=== PATIENT | male | born 1935 | race Caucasian/White ===

== ENCOUNTER 2016-11-14 05:46 | Emergency (ER) | payer OTHER ==
--- NOTE | ~2016-11-14 | EKG ---
PATIENT: LEESA MCKEON UNIT #: [id number] Ventricular Rate: 71 BPM Atrial Rate: 74 BPM QRS Duration: 84 ms Q-T Interval: 416 ms QTC Calculation(Bezet): 452 ms Calculated R Ione: 94 degrees Calculated T Ione: 60 degrees Diagnosis Line: ?? Sinus rhythm Diagnosis Line: Rightward axis Diagnosis Line: Low voltage QRS Diagnosis Line: Abnormal ECG Diagnosis Line: When compared with ECG of 22-MAY-2014 11:20, Diagnosis Line: No significant change was found Diagnosis Line: Confirmed by SHERI ARMENTA MD ([id number]) on Diagnosis Line: 11/14/2016 11:15:40 AM INTERPRETING MD: JAVIER
[~2016-11-14 05:46] MED LIST: ACETAMINOPHEN PO; ALDACTONE25 MG PO; ASPIRIN81 M1 PO; ASPIRIN81 MG PO; ASPIRINEC PO; AUGMENTIN1 TAB.SR1 PO; BP PILL; CADUET 5 MG/201 TAB PO; GLUCOVANCE 2.5/1 TA1 PO; GLUCOVANCE 5/501 TA2 PO; HUMULIN 70/30 V10 ML SUBQ; HUMULIN 70100 UNIT/1; HUMULIN 70100 UNIT/1 SQ; IRON325 ( 651 PO; LANTUS100 U/ML; LANTUS100 U/ML SUBQ; LASIX PO; LEVAQUIN PO; LOSARTAN-HCTZ1 EACH PO; LOTREL 5-20 MG1 CAP PO; LOTREL 5/20 MG1 CAP PO; NAFCILLIN SO2 G/VIAL IV; VICODIN 5/500 T1 TAB PO; ZANTAC PO; ZANTAC150 M1 PO
[2016-11-14 06:50] LABS: BASOPHIL% 0.1 % (0-2.5); EOSINOPHIL# 0.2 X10e3 (0-0.7); EOSINOPHIL% 3.3 % (0.0-7.0); HEMATOCRIT 27.5 % (38.0-50.0); HEMOGLOBIN 9.2 gm/dL (13.0-16.0); LYMPHOCYTE# 1.6 X10e3 (1.0-3.5); LYMPHOCYTE% 24.9 % (17.0-45.0); MEAN CELL VOLUME 101.7 FL (83-96); MEAN CORPUSCULAR HEMOGLOBIN 33.9 PG (28-34); MEAN CORPUSCULAR HGB CONC 33.3 g/dL (30-36); MONOCYTE# 0.7 X10e3 (0-1.0); MONOCYTE% 10.2 % (3.0-12.0); NEUTROPHIL% 61.5 % (40-75); RED BLOOD COUNT 2.71 X10e (3.90-5.60); RED CELL DISTRIBUTION WIDTH 14.2 % (11.0-15.5); WHITE BLOOD COUNT 6.4 X10e3 (4.0-10.5)
[2016-11-14 06:56] LABS: ALBUMIN SERUM 3.6 g/dL (3.5-5.0); BILIRUBIN, DIRECT 0.3 mg/dL (0.0-0.2); BILIRUBIN,TOTAL 1.3 mg/dL (0.2-2.0); CALCIUM SERUM 8.5 mg/dL (8.4-10.2); GLOM FILT RATE Estimated 30.8 mL/min (>60); POTASSIUM 4.5 mmol/L (3.5-5.1); PROTEIN TOTAL SERUM 6.5 g/dL (6.0-8.3)
[2016-11-14 07:15] LABS: DIFF IND YES; PLATELET COUNT 94 X10e3 (140-420)
[2016-11-14 07:17] LABS: PLATELET ESTIMATE DECREASED (NORMAL)
[2016-11-14 07:18] LABS: ANISOCYTOSIS SL; RBC NORMAL YES
[2016-11-14] MEDS ORDERED: NOVOLIN N100 UNIT/1 SUBQ ×2 (07:21→07:22)
[2016-11-14] MEDS ORDERED: NOVOLIN R100 UNITS/ SUBQ ×4 (07:22→07:25)
[2016-11-14] MEDS ORDERED: LASIX20 MG PO (07:23)
[2016-11-14] MEDS ORDERED: VITAMIN D-32000 UNI2 PO (07:23)
[2016-11-14] MEDS ORDERED: CARAFATE1 GM PO (07:24)
[2016-11-14] MEDS ORDERED: PHENERGAN12.5 MG PO (07:24)
[2016-11-14 12:10] LABS: URINE SOURCE CLEAN CATCH
[2016-11-14 12:15] LABS: URINE APPEARANCE CLEAR; URINE BLOOD NEG (NEG); URINE COLOR DK YELLOW; URINE GLUCOSE NEG (NEG); URINE KETONE TRACE (NEG); URINE LEUKOCYTE ESTERASE NEG (NEG); URINE NITRATE NEG (NEG); URINE PROTEIN 1+ (NEG); URINE SPECIFIC GRAVITY 1.022 (1.003-1.035)
[2016-11-14 12:17] LABS: URINE BACTERIA AUWI NEG (NEGATIVE); URINE SQUAMOUS EPITHELIAL CELL OCC /[HPF]
[2016-11-14 12:18] LABS: URINE BILIRUBIN POS (NEG)
[2016-11-14 12:26] LABS: CULTURE INDICATED? NO; U HYALINE CASTS AUWI 0-2 /[LPF]
== END 2016-11-14 13:42 | disposition home or self-care (01) ==
LOC: CED 05:46
PROVIDERS: Emergency Medicine
DX: E10.649 Type 1 diabetes mellitus with hypoglycemia without coma (principal); N28.9 Disorder of kidney and ureter, unspecified; I10 Essential (primary) hypertension
CPT/HCPCS: 36415; 80048; 80076; 81003; 82947; 85025; 93005; 96360; 99284

== ENCOUNTER 2016-11-19 08:28 | Inpatient (IN) | payer OTHER ==
--- NOTE | ~2016-11-19 | US77 ---
[facility] A Service of [facility] RADIOLOGY TEXT RESULTS PATIENT: LEESA MCKEON LOCATION: [facility] 330- : 37 UNIT #: [id number] AGE: [address]: Nika Royal MD SEX: M ORDER DR: [id number] [facility] [address] [facility]. [place], [place] [address] [id number] I MR#: [id number] Acc #: [id number] NAME: LEESA MCKEON : 1935 SEX: M STUDY DATE/TIME: 11/19/2016 18:49 UNIT: [address] ROOM: [address] [place] [address] DESCRIPTION: US Kidney Bilateral Complete Attending Physician: Tonie Cronin M.D. Ordering Physician: Tonie Cronin M.D. Primary Care Physician: Luca Echavarria M.D. MEDICAL IMAGING REPORT This report is preliminary unless electronic signature is present EXAM Right renal ultrasound HISTORY Chronic kidney disease. Elevated creatinine. FINDINGS Ultrasound examination of both kidneys was requested. However, the left kidney is not visualized, and could be obscured by bowel gas. The right kidney appears moderately atrophic, and is also not optimally seen, but no right hydronephrosis is identified. Urinary bladder is normal. IMPRESSION 1. Moderate right renal atrophy. No right renal abnormality is identified but evaluation is limited by bowel gas partly obscuring the right kidney. 2. Nonvisualization of the left kidney due to bowel gas in the left abdomen. Consider either attempted repeat left renal ultrasound versus CT abdomen to evaluate the left kidney. Depending upon clinical concern. 3. Survey of the urinary bladder is normal. Dictated by... Charli Nguyen M.D. THIS IS AN ELECTRONICALLY VERIFIED REPORT Charli Nguyen M.D. at 11/27/2016 10:34 PM JV/dilip TD: 11/20/2016 03:44 JOB #: [id number] [facility] A Service [facility] RADIOLOGY TEXT RESULTS PATIENT: LEESA MCKEON LOCATION: [facility] 330-01 : 37 UNIT #: [id number] AGE: [address]: Nika Royal MD SEX: M ORDER DR: MEDICAL IMAGING REPORT Page 1 of 1 COPY
--- NOTE | ~2016-11-19 | HP ---
Unit #: [id number] #: [id number] Patient: LEESA MCKEON [id number] [facility]. [place], [place] [address] [id number] I MR#: [id number] NAME: LEESA MCKEON. ROOM: 60223 Age: 81 Sex: M Admission Date: 11/19/2016 : 1935 Attending Physician: Tonie Cronin M.D. Primary Care Physician: Luca Echavarria M.D. HISTORY AND PHYSICAL CHIEF COMPLAINT Shortness of breath. HISTORY OF PRESENT ILLNESS The patient is a 81-year-old male with past medical history of hypertension, CHF and diabetes who presented to the emergency department for evaluation of the above. The patient states that he has had at least a one-week history of increasing shortness of breath and nonproductive cough. He denies any fever. No chest pain. He has 3-pillow orthopnea that is not a new problem. He reports increasing lower extremity edema. He has gained an unknown amount of weight. He has dyspnea on exertion with minimal activity. He also reports paroxysmal nocturnal dyspnea. He has had decreased appetite and nausea but no vomiting or diarrhea. The patient states that he was started on Lasix and spironolactone in September of 2016 around [place]. Two weeks later it was discontinued. He saw Dr. Queen who recommended that he go back on the Lasix 20 mg b.i.d. He has been taking his medications as prescribed. In the emergency department chest x-ray was done and showed pulmonary edema. BNP was 511. He was given 40 mg of Lasix IV in the emergency department. He is being admitted to [facility] for evaluation and further treatment. PAST MEDICAL HISTORY 1. Admission to [facility] May 08 through May 14, 2011 for MRSA bacteremia and E-coli urinary tract infection. 2. Chronic kidney disease, followed by Dr. Pulliam. 3. Hypertension. 4. Diabetes. The patient sees Dr. Batista. 5. Congestive heart failure. The patient had an echocardiogram May 13, 2011 that showed an ejection fraction of 50% with mild septal hypokinesis, mild concentric left ventricular hypertrophy, mild mitral regurgitation. He does not routinely see a manager service desk. PAST SURGICAL HISTORY 1. Right knee surgery. 2. Left foot surgery. 3. Right wrist. SOCIAL HISTORY Unit #: [id number] #: [id number] Patient: LEESA MCKEON The patient lives with his . He does not smoke. He walks with a walker. CODE STATUS His code status is a full code. FAMILY HISTORY Notable for his paternal grandmother having diabetes. ALLERGIES Omeprazole. HOME MEDICATIONS 1. Novolin N 45 units in the morning, 35 units at bedtime. 2. Novolin R 20 units at lunch, 15 units at dinner. 3. Novolin R 25 units with breakfast. 4. Vitamin D3 - 2,000 units daily. 5. Lasix 20 mg b.i.d. 6. Phenergan 12.5 mg q.i.d. p.r.n. 7. Carafate 1 gram q.i.d. 8. Zestril 25 mg daily. REVIEW OF SYSTEMS A complete review of systems is negative except as indicated in the HPI. The patient was seen in the emergency department on November 14, 2016 for low blood sugar. He was discharged home. He has altered his insulin regimen since that time. Blood sugars have been between 70 and 100 since then. He also reports a fall on November 05, 2016. The patient states that he had a stress test and a cardiac catheterization more than 5 years ago at [facility]. PHYSICAL EXAMINATION VITAL SIGNS: Temperature is 98, pulse 66, respirations 20, blood pressure 141/53, oxygen saturation 98% on room air. GENERAL: The patient is a very pleasant male who is awake and alert, in no acute distress. HEENT: The head is atraumatic. Mucous membranes are moist. NECK: Supple. Trachea is midline. CARDIOVASCULAR: Regular rate and rhythm. RESPIRATORY: Lungs demonstrate decreased breath sounds at he bases. Breathing is mildly labored with conversation. ABDOMEN: Obese, soft, nontender with bowel sounds present in all 4 quadrants. EXTREMITIES: Extremities show 2 to 3+ pitting edema of the lower extremities. NEUROLOGIC: The patient is awake and alert. He follows commands. PSYCHIATRIC: Mood and affect are normal. The patient is cooperative. SKIN: Skin of examined areas is warm and dry. DIAGNOSTIC TESTS CARDIOVASCULAR: EKG shows low voltage and a rate of 65 beats per minute. IMAGING: Chest x-ray shows pulmonary edema. LABORATORY: Troponin is less than 0.05. INR is 1.3. Complete blood count notable for hemoglobin and hematocrit of 8.9 and 26.5 respectively. MCV is 102.5, RDW 14.5, platelets 92. Comprehensive metabolic panel is notable for chloride of 113, CO2 19, anion gap 7, glucose 114, BUN and creatinine Unit #: [id number] #: [id number] Patient: LEESA MCKEON 58 and 2.1 respectively. BNP is 511. ASSESSMENT 1. The patient is a 81-year-old male with CHF exacerbation. Ejection fraction was 50% on echocardiogram May 13, 2011. The patient received 40 mg of Lasix in the emergency department. 2. Acute on chronic kidney disease. The patient sees Dr. Pulliam. His creatinine was 1.3 on November 26, 2015. It was 2 on November 14 of this year, 2.1 today. He is on Lasix and Zestril, which could be contributing. 3. Hypertension. 4. Macrocytic anemia. The patient's hemoglobin was 13.1 May 22, 2014; 9.2 on November 14, 2016; it is 8.9 today. 5. Thrombocytopenia. The patient's platelets have been as low as 123 on May 22, 2014. Platelets are 92 today. 6. Diabetes. PLAN 1. Admit to intermediate level. 2. Two-gram sodium, 1,800 mL fluid restricted, heart healthy, consistent carb diet. 3. Two-D echo. 4. Strict I's and O's. 5. Daily weights. 6. TSH. 7. Serial cardiac enzymes. 8. Lasix 20 mg IV daily pending Dr. Arias's recommendations. 9. Consult Dr. Arias regarding congestive heart failure exacerbation. 10. Consult Dr. Pulliam regarding acute on chronic kidney disease. 11. Will hold lisinopril pending further workup. 12. CPK. 13. Check urinalysis with culture and sensitivity. 14. Iron studies, B12 and folate. 15. Hemoccult stool. 16. Get cardiac cath report from [facility]. 17. Repeat labs in the morning. 18. Additional workup and consultants based on above. Dictated by Karina Rodrigues/christie TD: 11/19/2016 14:48 JOB #: [id number] Unit #: [id number] #: [id number] Patient: LEESA MCKEON HISTORY AND PHYSICAL Page 1 of 1 X Tonie Cronin MD HISTORY AND PHYSICAL
--- NOTE | ~2016-11-19 | EKG ---
PATIENT: LEESA MCKEON UNIT #: [id number] Ventricular Rate: 65 BPM Atrial Rate: 65 BPM QRS Duration: 82 ms Q-T Interval: 418 ms QTC Calculation(Bezet): 434 ms Calculated R [place]: 105 degrees Calculated T [place]: 93 degrees Diagnosis Line: Atrial fibrillation Diagnosis Line: Rightward axis Diagnosis Line: Low voltage QRS Diagnosis Line: Abnormal ECG Diagnosis Line: When compared with ECG of 14-NOV-2016 08:45, Diagnosis Line: No significant change was found Diagnosis Line: Confirmed by LEONORA BHAT MD ([id number]) on Diagnosis Line: 11/20/2016 2:53:39 PM INTERPRETING MD: EVELINE
--- NOTE | ~2016-11-19 | DS ---
Unit #: [id number] #: [id number] Patient: LEESA MCKEON [id number] [address] [address] [id number] I MR#: [id number] NAME: LEESA MCKEON ROOM: 330 Age: 81 Sex: M Admission Date: 11/19/2016 : 1935 Discharge Date: 11/28/2016 Attending Physician: Nika Royal M.D. Primary Care Physician: Luca Echavarria M.D. DISCHARGE SUMMARY REASON FOR ADMISSION 1. Acute on chronic end diastolic heart failure. 2. Acute on chronic kidney disease. 3. Hypertension. 4. Diabetes. 5. Metabolic acidosis. HOSPITAL COURSE Please see Dr. Downey's initial transition/discharge summary for initial part of hospital stay. Patient was subsequently kept after renal services recommended Lasix 120 mg IV b.i.d. He was appropriately followed while here. He underwent routine laboratory studies. Cardiology service has continued to follow the patient as well. At this point in time, his creatinine currently stands at 2.2. At time of discharge, his hemoglobin is 9.8. He appears clinically stable for transition to rehab for ongoing care. FINAL DISCHARGE MEDICATIONS 1. K-Dur 20 mEq p.o. b.i.d. 2. Carafate 1 g p.o. q.a.c. 3. NovoLog low dose sliding scale with insulin, Accu-Cheks q.a.c. and nightly. 4. Humulin N 40 units subcutaneous q.a.m. 5. Humulin N 35 units subcutaneous nightly. 6. Lasix 40 mg p.o. b.i.d. 7. Tylenol 650 mg p.o. q.6 p.r.n. DISCHARGE CONDITION Stable. DISCHARGE DISPOSITION Rehab for ongoing care. Dictated by... Karina Panchal/juan Unit #: [id number] #: [id number] Patient: LEESA MCKEON TD: 11/28/2016 10:48 JOB #: [id number] DISCHARGE SUMMARY Page 1 of 1 X Nika Royal MD DISCHARGE SUMMARY
--- NOTE | ~2016-11-19 | CO ---
Unit #: [id number] #: [id number] Patient: LEESA MCKEON [id number] [address] [place], [place] [address] [id number] MR#: [id number] NAME: LEESA MCKEON ROOM: 330 Age: 81 Sex: M Admission Date: 11/19/2016 : 1935 Attending Physician: Saqib Downey M.D. Primary Care Physician: Luca Echavarria M.D. Consultation Date: 11/19/2016 CONSULTATION REPORT REASON FOR CONSULTATION Renal insufficiency. Thank you very much for asking me to see this patient again. HISTORY OF PRESENT ILLNESS Mr. Mckeon is a 81-year-old male with history of chronic kidney disease, stage 3, felt related to diabetes mellitus, followed by Dr. Rocael Pulliam in our office with a creatinine baseline of 1.49 in the last two checks in the end of 2015, who presented to the hospital with increasing shortness of breath. He says this has been going on for the last 6 to 8 weeks. His diuretics have been intermittently adjusted per primary as well as noted to have worsening anemia. He also went apparently to the emergency room in the last week with some nausea and was given Carafate and Phenergan. He denies any nonsteroidal use in home. He says mainly just some increased swelling and mild increased shortness of breath. He denies any chest pain, fevers, or chills. PAST MEDICAL HISTORY History of diabetes mellitus for many years with complications including retinopathy, neuropathy, and probably nephropathy; history of chronic kidney disease, stage 3; history of obesity; history of left lower extremity DVT 20 plus years ago; history of nephrolithiasis in 2000; history of obstructive sleep apnea, has refused treatment for this; and history of peptic ulcer disease in the past. SOCIAL HISTORY No smoking. . Retired. Occasional alcohol only. REVIEW OF SYSTEMS As mentioned in the HPI. No visual problems or sinus problems. No cough or hemoptysis. No neck pain or neck stiffness. No chest pain, chest heaviness, or palpitations. Some mild shortness of breath upon exertion and at rest. Increased abdominal swelling. No urinary symptoms; starting, stopping, or burning. Increased scrotal swelling. Increased lower extremity swelling. No recent seizures, strokes, or skin rashes. FAMILY HISTORY Noncontributory. MEDICATIONS At home include lisinopril daily, Aldactone 25 mg a day, Lasix 20 mg b.i.d., insulin, sodium bicarb twice a day, and vitamin D daily. Unit #: [id number] #: [id number] Patient: LEESA MCKEON PHYSICAL EXAMINATION GENERAL: He is alert and oriented. VITAL SIGNS: Temperature is 98.0, pulse 60 to 74, and blood pressure 116 to 141/54 to 94. HEENT: Normocephalic and atraumatic. Pupils are equal, round, and reactive to light. Extraocular muscles are intact. Hearing appears to be normal. Mouth clear. No erythema. No exudate. NECK: Supple. No adenopathy. CARDIAC: He appears to have a regular rhythm without a rub. No S3 or S4. LUNGS: He has decreased breath sounds at his bases. Upper lungs are clear. ABDOMEN: Obese. Bowel sounds positive. Nontender. Soft. No masses felt. No hepatomegaly noted. He does have positive body edema. : Positive scrotal edema. Positive penile edema. EXTREMITIES: He has 3+ lower extremity swelling. His pulses are intact in lower extremities. JOINTS: No joint pain or joint swelling. SKIN: No acute rashes. NEURO: Appears to be intact both motor and sensory grossly. DIAGNOSTIC STUDIES LABORATORY RESULTS: Shows sodium of 139, potassium 4.4, chloride is 113, bicarb is 19, BUN and creatinine are 58 and 2.1, glucose 114, calcium is 8.4, albumin is 3.5, and CPK is 524. BNP is 511. His T saturation is 20. On his last check, his hemoglobin was 8.9, platelets 92,000, and his white count was 5400. IMAGING STUDIES: Chest x-ray is consistent with pulmonary edema. ASSESSMENT AND PLAN 1. Acute on chronic kidney disease, stage 3. The patient certainly is volume overloaded on exam. I am not sure of the exact cause of his worsening renal failure. If this could be cardiac related, then a workup is underway for that versus urinary retention. Check bladder scan. Check renal ultrasound versus other. He does have some mild decreasing platelets. I would like to go ahead and check an LDH, retic count, and haptoglobin. Check urine studies as ordered. UA culture and sensitivity. Also, check a random urine protein and creatinine and make sure he is not severely nephrotic, which could also be contributing to his severe swelling. We will check urine eosinophils to rule out acute interstitial nephritis. Depending on what all of this shows and depending on what further workup and treatment, certainly again he has increased volume. I am going to change his Lasix to 80 mg IV q.6 for now. Watch I's and O's and daily weights, etc. 2. Diabetes mellitus complications. 3. History of hypertension. We will follow blood pressures. For now, I agree holding his CARMEN inhibitor, although long-term probably would be putting back on that. 4. Anemia. Dictated by... Karina Paul/yuli TD: 11/20/2016 14:09 JOB #: [id number] Unit #: [id number] #: [id number] Patient: LEESA MCKEON CONSULTATION REPORT Page 1 of 1 X Shaquille Garces MD X CONSULTATION REPORT
--- NOTE | ~2016-11-19 | A ---
[facility] DATE: 11/25/16 Patient: LEESA MCKEON Physician: MARILYN Address: [address] Room/Bed: [address] [place] [address], Zip: [place] [address] Admit Date: 11/19/16 Date of : 37 Height: 6 9 Weight: 342 155.5 NUTRITIONAL ASSESSMENT: REASON: CONSULT RE: HIGH PROTEIN DIET EDUCATION 81 YO MALE ADMITTED FOR CHF Assessment: RD consulted to provide high protein diet education. RD spoke with the pt and his at bedside. RD explained how protein can help with wound healing, and discussed lean protein options with the pt. RD also provided low sodium and brief CKD diet education. Pt and his were appreciative and voiced understanding of the information. Pt denied the need for nutritional supplements at this time. RD to remain available. Recommendations: 1. Pt would benefit from follow a heart healthy (2 gram Na+) diet with adequate protein intake + MVI with minerals to promote wound healing. Protein intake should not be excessive given the pt's h/o CKD. Please consult RD for any further nutritional needs. Respectfully, PADILLA REDDY RD, LD Food and Nutritional Services [facility] cc: client file
--- NOTE | ~2016-11-19 | CO ---
Unit #: [id number] #: [id number] Patient: LEESA MCKEON [id number] [address] [place], [place] [address] [id number] MR#: [id number] NAME: LEESA MCKEON. ROOM: 330 Age: 81 Sex: M Admission Date: 11/19/2016 : 1935 Attending Physician: Saqib Downey M.D. Primary Care Physician: Luca Echavarria M.D. Consultation Date: 11/19/2016 CONSULTATION REPORT REASON FOR CONSULTATION Congestive heart failure. HISTORY OF PRESENT ILLNESS This is a 81-year-old male, with a previous medical history of hypertension, diabetes mellitus, anemia, and chronic kidney disease, for which he follows with . He presented to the ER with increasing lower extremity swelling and dyspnea on exertion. He states is has been getting progressively worse over the last month. Reports PND and orthopnea. Denies any chest pressure, chest pain, or tightness. Chest x-ray in the ER reveals some mild interstitial edema. YVES done May 13, 2011, showed LVEF 50% with some mild septal hypokinesis and mild concentric left ventricular hypertrophy. In addition, there was mild mitral regurgitation. BNP was mildly elevated at 511. He was given Lasix 40 mg IV in the emergency department and his breathing has improved. We were asked to see him to evaluate his congestive heart failure. PAST MEDICAL HISTORY 1. Hypertension. 2. Diabetes mellitus. 3. Chronic kidney disease. 4. Anemia. 5. Life-time nonsmoker. 6. CHF. PAST SURGICAL HISTORY 1. Right knee surgery. 2. Left foot surgery. 3. Right wrist surgery. SOCIAL HISTORY The patient lives with his . He is limited with his mobility. He uses a walker to move around in his home. According to him and his , he does not usually leave home, expect to go to doctors appointments and he uses a wheelchair for those visits. He is life-time nonsmoker. Denies alcohol or illicit drug use. FAMILY HISTORY Denies a family history of coronary artery disease. ALLERGIES Omeprazole causes nausea and vomiting. Unit #: [id number] #: [id number] Patient: LEESA MCKEON HOME MEDICATIONS Novolin N insulin 45 units subcu every morning and 35 units subcu at bedtime, Novolin R 20 units subcu at lunch and 15 units subcu at dinner, vitamin D3 of 2000 units daily, Lasix 20 p.o. twice a day, Phenergan 12.5 mg by mouth 4 times a day as needed for nausea, Carafate 1 g by mouth 4 times daily, and Zestril 25 mg p.o. daily. REVIEW OF SYSTEMS Otherwise negative except for what was stated in the HPI. PHYSICAL EXAMINATION VITAL SIGNS: Temperature 98.1, heart rate 66, respiratory rate 14, O2 sat 98% on room air, blood pressure 100/64. Height 68 inches and weight 102.5 kg. BMI 37. GENERAL: This is a pleasant 81-year-old male, resting in bed, in no acute distress. HEENT: Head is atraumatic and normocephalic. Pupils are equal and round. Mucous membranes are moist. NECK: Supple. Trachea is midline. Negative for JVD. LUNGS: Expiratory wheezes and diminished at bases. Nonlabored respirations. CARDIOVASCULAR: S1 and S2. Irregularly irregular rhythm. ABDOMEN: Soft, nontender, and nondistended. EXTREMITIES: Pulses are palpable. 2+ pedal edema. No cyanosis. NEUROLOGIC: Alert and oriented x3. Moves all extremities equally and follows commands without difficulty. LABORATORY DATA LABORATORY RESULTS: Sodium 139, potassium 4.4, chloride 113, BUN 58, creatinine 2.1, and glucose 114. Hemoglobin 8.9, hematocrit 26.5, white blood cell count 5.4, and platelets 92. AST 31, ALT 23, and alkaline phosphatase . Point of care troponin less than 0.05. UA showed 4+ bacteria with 25 to 50 white blood cell count and 100 to 200 red blood cells. TSH was 3.68. IMAGING STUDIES: Chest x-ray showed mild bilateral interstitial opacities. EKG revealed sinus arrhythmia with frequent PACs and ventricular rate of 60 as well as low voltage QRS. ASSESSMENT 1. Acute diastolic heart failure, LVEF 50%. 2. Frequent PACs verus atrial fibrillation. 3. Hypertension. 4. Diabetes mellitus. 5. Anemia. 6. Thrombocytopenia. 7. Acute kidney injury on chronic kidney disease. PLAN 1. Diuretics as per Renal. 2. Discontinue lisinopril. 3. Continue fluid restriction with strict I and O and daily weights. 4. Trend cardiac enzymes. 5. Check echocardiogram. Thank you for asking us to see this patient. We appreciate the consult. Dictated by... Unit #: [id number] #: [id number] Patient: LEESA MCKEON APRN RB/yuli TD: 11/20/2016 12:26 JOB #: [id number] CONSULTATION REPORT Page 1 of 1 X X CONSULTATION REPORT
--- NOTE | ~2016-11-19 | CR72 ---
[facility] A Service of [facility] RADIOLOGY TEXT RESULTS PATIENT: LEESA MCKEON LOCATION: [facility] 330-01 : 37 UNIT #: [id number] AGE: [address]: Saqib Downey MD SEX: M ORDER DR: [id number] [facility] [address] [facility]. [place], [place] [address] [id number] MR#: [id number] Acc #: [id number] NAME: LEESA MCKEON : 1935 SEX: M STUDY DATE/TIME: 11/19/2016 8:53 UNIT: [employer] ROOM: 61142 STUDY DESCRIPTION: CR Chest Single View Portable Attending Physician: Tonie Cronin M.D. Ordering Physician: Yrn Puente M.D. Primary Care Physician: Luca Echavarria M.D. MEDICAL IMAGING REPORT This report is preliminary unless electronic signature is present EXAM Portable chest. INDICATIONS Shortness of breath, leg swelling today. COMPARISON 12/02/2014 FINDINGS There are mild bilateral interstitial opacities, which may reflect interstitial edema given the patient's clinical history. Heart size stable. IMPRESSION Mild bilateral interstitial opacities, which may reflect interstitial edema given the patient's clinical history. Dictated by... Oneil Canela M.D. THIS IS AN ELECTRONICALLY VERIFIED REPORT Oneil Canela M.D. at 11/22/2016 7:31 AM DEVORA/coco TD: 11/19/2016 12:13 JOB #: [id number] MEDICAL IMAGING REPORT Page 1 of 1 COPY
--- NOTE | ~2016-11-19 | DS ---
Unit #: [id number] #: [id number] Patient: LEESA MCKEON [id number] [address] [address] [id number] I MR#: [id number] NAME: LEESA MCKEON ROOM: 330 Age: 81 Sex: M Admission Date: 11/19/2016 : 1935 Discharge Date: Attending Physician: Saqib Downey M.D. Primary Care Physician: Luca Echavarria M.D. DISCHARGE SUMMARY PRELIMINARY DISCHARGE SUMMARY This will be addended tomorrow by my partner who will discharge the patient. DISCHARGE DIAGNOSES 1. Unwle-sw-edrspmf diastolic heart failure. 2. Jlyif-cb-kwhvfck kidney disease. 3. Hypertension. 4. Diabetes. 5. Metabolic acidosis. HOSPITAL COURSE The patient is an 89-year-old male admitted 11/19/2016 secondary to shortness of breath. He was noted to have congestive heart failure exacerbation and started on IV Lasix. The patient was also noted to have an elevation in his creatinine 2.0. Last known check approximately one year ago with a value of 1.3. The patient was admitted to intermediate level bed and started on 2 g sodium diet with 1800 cc fluid restriction. Two-dimensional echo was ordered, which showed the patient's diastolic heart failure with relatively normal systolic function. The patient was started on IV diuretics and renal consult was obtained. The patient's heart failure was relative recalcitrant to treatment with IV diuretics. The patient did ultimately require 120 mg of IV Lasix every 8 hours. Since the change to that dosage the patient's urine output has improved markedly. The patient has net 11 liters negative since admission. The patient's creatinine has remained stable during this entire admission. This is likely his new baseline. The patient was seen in consultation by physical therapy, who feel the patient would benefit from subacute rehab. At the time of this dictation rehab bed and precertification are being sought. The patient will continue to diurese and the dosage of diuretic will be reduced once he has reached his appropriate volume status. He will likely require monitoring and adjustment of loop diuretics with increased lower extremity swelling. Dictated by... Saqib Downey M.D. CAM/gz Unit #: [id number] #: [id number] Patient: LEESA MCKEON Tori TD: 11/25/2016 15:26 JOB #: [id number] DISCHARGE SUMMARY Page 1 of 1 X Saqib Downey MD DISCHARGE SUMMARY
[~2016-11-19 08:28] MED LIST changes: +CARAFATE1 GM PO; +LASIX20 MG PO; +NOVOLIN N100 UNIT/1 SUBQ; +NOVOLIN R100 UNITS/ SUBQ; +PHENERGAN12.5 MG PO; +VITAMIN D-32000 UNI2 PO
[2016-11-19] MEDS ORDERED: LISINOPRIL PO (09:18)
[2016-11-19 09:22] LABS: BASOPHIL% 0.5 % (0-2.5); EOSINOPHIL# 0.4 X10e3 (0-0.7); EOSINOPHIL% 6.7 % (0.0-7.0); HEMATOCRIT 26.5 % (38.0-50.0); HEMOGLOBIN 8.9 gm/dL (13.0-16.0); LYMPHOCYTE# 1.5 X10e3 (1.0-3.5); MEAN CELL VOLUME 102.5 FL (83-96); MEAN CORPUSCULAR HEMOGLOBIN 34.2 PG (28-34); MEAN CORPUSCULAR HGB CONC 33.3 g/dL (30-36); MEAN PLATELET VOLUME 8.1 FL (6.5-11.5); MONOCYTE# 0.7 X10e3 (0-1.0); MONOCYTE% 13.1 % (3.0-12.0); NEUTROPHIL# 2.8 X10e3 (1.5-7.1); NEUTROPHIL% 51.7 % (40-75); RED BLOOD COUNT 2.59 X10e (3.90-5.60); RED CELL DISTRIBUTION WIDTH 14.5 % (11.0-15.5); WHITE BLOOD COUNT 5.4 X10e3 (4.0-10.5)
[2016-11-19 09:33] LABS: INR 1.3; PARTIAL THROMBOPLASTIN TIME 27.1 SECONDS (23.5-31.3); PROTHROMBIN TIME (PATIENT) 13.7 SECONDS (10.0-11.7)
[2016-11-19 09:37] LABS: POC - CKMB 1.9 ng/mL (0.0-7.9); POC - TROPONIN <0.05 ng/mL (<=0.05)
[2016-11-19 09:43] LABS: ALBUMIN SERUM 3.5 g/dL (3.5-5.0); BILIRUBIN, DIRECT 0.3 mg/dL (0.0-0.2); BILIRUBIN,INDIRECT 0.9 mg/dL (0.0-0.9); BILIRUBIN,TOTAL 1.2 mg/dL (0.2-2.0); BUN/CREATININE RATIO 27.61; CALCIUM SERUM 8.4 mg/dL (8.4-10.2); CREATININE SERUM 2.1 mg/dL (0.6-1.4); GLOM FILT RATE Estimated 29.1 mL/min (>60); POTASSIUM 4.4 mmol/L (3.5-5.1); PROTEIN TOTAL SERUM 6.3 g/dL (6.0-8.3)
[2016-11-19 09:56] LABS: DIFF IND YES; PLATELET COUNT 92 X10e3 (140-420)
[2016-11-19 09:59] LABS: PLATELET ESTIMATE DECREASED (NORMAL)
[2016-11-19 10:00] LABS: ANISOCYTOSIS SL; RBC NORMAL YES
[2016-11-19 10:50] LABS: POC - CKMB 2.3 ng/mL (0.0-7.9); POC - TROPONIN <0.05 ng/mL (<=0.05)
[2016-11-19 14:59] LABS: FOLATE (FOLIC ACID) 9.4 ng/mL (>5.8)
[2016-11-19 17:09] LABS: URINE SOURCE CLEAN CATCH
[2016-11-19 17:22] LABS: URINE APPEARANCE CLEAR; URINE BILIRUBIN NEG (NEG); URINE BLOOD NEG (NEG); URINE COLOR YELLOW; URINE GLUCOSE NEG (NEG); URINE KETONE NEG (NEG); URINE LEUKOCYTE ESTERASE NEG (NEG); URINE NITRATE NEG (NEG); URINE PROTEIN NEG (NEG); URINE SPECIFIC GRAVITY 1.011 (1.003-1.035); URINE UROBILINOGEN 0.2 MG/DL (NEG)
[2016-11-19 17:26] LABS: CULTURE INDICATED? NO
[2016-11-19 18:54] LABS: URINE APPEARANCE CLEAR; URINE BILIRUBIN NEG (NEG); URINE BLOOD NEG (NEG); URINE COLOR YELLOW; URINE GLUCOSE NEG (NEG); URINE KETONE NEG (NEG); URINE LEUKOCYTE ESTERASE NEG (NEG); URINE NITRATE NEG (NEG); URINE PROTEIN NEG (NEG); URINE SPECIFIC GRAVITY 1.011 (1.003-1.035); URINE UROBILINOGEN 0.2 MG/DL (NEG)
[2016-11-19 19:04] LABS: CREATININE,RANDOM URINE 77 mg/dL; TOTAL PROTEIN,RANDOM URINE <10 mg/dl (<10)
[2016-11-19 19:57] LABS: MB 5.4 ng/ml
[2016-11-20 02:08] LABS: %MB 0.9 % (0.0-4.0)
[2016-11-20 06:06] LABS: BASOPHIL% 0.2 % (0-2.5); EOSINOPHIL# 0.3 X10e3 (0-0.7); EOSINOPHIL% 5.5 % (0.0-7.0); HEMATOCRIT 26.8 % (38.0-50.0); HEMOGLOBIN 8.9 gm/dL (13.0-16.0); LYMPHOCYTE# 1.9 X10e3 (1.0-3.5); LYMPHOCYTE% 31.9 % (17.0-45.0); MEAN CELL VOLUME 102.7 FL (83-96); MEAN CORPUSCULAR HGB CONC 33.1 g/dL (30-36); MEAN PLATELET VOLUME 8.3 FL (6.5-11.5); MONOCYTE# 0.8 X10e3 (0-1.0); MONOCYTE% 12.7 % (3.0-12.0); NEUTROPHIL% 49.7 % (40-75); PLATELET COUNT 96 X10e3 (140-420); RED BLOOD COUNT 2.61 X10e (3.90-5.60)
[2016-11-20 06:07] LABS: DIFF IND NO
[2016-11-20 06:11] LABS: INR 1.2; PROTHROMBIN TIME (PATIENT) 13.4 SECONDS (10.0-11.7)
[2016-11-20 06:31] LABS: ALBUMIN SERUM 3.4 g/dL (3.5-5.0); BUN/CREATININE RATIO 28.5; CALCIUM SERUM 8.3 mg/dL (8.4-10.2); GLOM FILT RATE Estimated 30.8 mL/min (>60); PHOSPHOROUS 3.7 mg/dL (2.5-4.6); POTASSIUM 4.5 mmol/L (3.5-5.1); PROTEIN TOTAL SERUM 6.2 g/dL (6.0-8.3)
[2016-11-21 08:17] LABS: CALCIUM SERUM 8.5 mg/dL (8.4-10.2); GLOM FILT RATE Estimated 30.8 mL/min (>60); POTASSIUM 4.4 mmol/L (3.5-5.1)
[2016-11-22 06:13] LABS: CALCIUM SERUM 8.4 mg/dL (8.4-10.2); GLOM FILT RATE Estimated 30.8 mL/min (>60); MAGNESIUM 2.1 mg/dL (1.6-3.0); POTASSIUM 3.8 mmol/L (3.5-5.1)
[2016-11-23 07:59] LABS: HEMATOCRIT 27.9 % (38.0-50.0); HEMOGLOBIN 9.3 gm/dL (13.0-16.0); MEAN CORPUSCULAR HEMOGLOBIN 33.7 PG (28-34); MEAN CORPUSCULAR HGB CONC 33.3 g/dL (30-36); MEAN PLATELET VOLUME 8.3 FL (6.5-11.5); RED BLOOD COUNT 2.76 X10e (3.90-5.60); RED CELL DISTRIBUTION WIDTH 13.5 % (11.0-15.5); WHITE BLOOD COUNT 5.8 X10e3 (4.0-10.5)
[2016-11-23 08:16] LABS: BUN/CREATININE RATIO 31.57; CALCIUM SERUM 8.8 mg/dL (8.4-10.2); CREATININE SERUM 1.9 mg/dL (0.6-1.4); GLOM FILT RATE Estimated 32.8 mL/min (>60); POTASSIUM 3.8 mmol/L (3.5-5.1)
[2016-11-24 06:36] LABS: HEMATOCRIT 27.1 % (38.0-50.0); HEMOGLOBIN 9.1 gm/dL (13.0-16.0); MEAN CELL VOLUME 100.9 FL (83-96); MEAN CORPUSCULAR HGB CONC 33.7 g/dL (30-36); MEAN PLATELET VOLUME 8.3 FL (6.5-11.5); RED BLOOD COUNT 2.68 X10e (3.90-5.60); RED CELL DISTRIBUTION WIDTH 13.8 % (11.0-15.5); WHITE BLOOD COUNT 5.3 X10e3 (4.0-10.5)
[2016-11-24 07:44] LABS: BUN/CREATININE RATIO 32.1; CALCIUM SERUM 8.5 mg/dL (8.4-10.2); CREATININE SERUM 1.9 mg/dL (0.6-1.4); GLOM FILT RATE Estimated 32.8 mL/min (>60); POTASSIUM 3.5 mmol/L (3.5-5.1)
[2016-11-25 06:47] LABS: BUN/CREATININE RATIO 29.5; CALCIUM SERUM 8.7 mg/dL (8.4-10.2); GLOM FILT RATE Estimated 30.8 mL/min (>60); POTASSIUM 3.6 mmol/L (3.5-5.1)
[2016-11-26 06:25] LABS: HEMATOCRIT 28.2 % (38.0-50.0); HEMOGLOBIN 9.5 gm/dL (13.0-16.0); MEAN CELL VOLUME 100.3 FL (83-96); MEAN CORPUSCULAR HEMOGLOBIN 33.8 PG (28-34); MEAN CORPUSCULAR HGB CONC 33.8 g/dL (30-36); RED BLOOD COUNT 2.82 X10e (3.90-5.60); RED CELL DISTRIBUTION WIDTH 13.7 % (11.0-15.5); WHITE BLOOD COUNT 5.8 X10e3 (4.0-10.5)
[2016-11-26 06:57] LABS: BUN/CREATININE RATIO 28.57; CALCIUM SERUM 9.1 mg/dL (8.4-10.2); CREATININE SERUM 2.1 mg/dL (0.6-1.4); GLOM FILT RATE Estimated 29.1 mL/min (>60); POTASSIUM 3.8 mmol/L (3.5-5.1)
[2016-11-27 05:49] LABS: HEMATOCRIT 29.2 % (38.0-50.0); HEMOGLOBIN 9.9 gm/dL (13.0-16.0); MEAN CELL VOLUME 99.9 FL (83-96); MEAN CORPUSCULAR HEMOGLOBIN 33.7 PG (28-34); MEAN CORPUSCULAR HGB CONC 33.7 g/dL (30-36); MEAN PLATELET VOLUME 8.2 FL (6.5-11.5); RED BLOOD COUNT 2.93 X10e (3.90-5.60); RED CELL DISTRIBUTION WIDTH 13.6 % (11.0-15.5); WHITE BLOOD COUNT 5.9 X10e3 (4.0-10.5)
[2016-11-27 06:00] LABS: ALBUMIN SERUM 3.3 g/dL (3.5-5.0); BILIRUBIN,TOTAL 1.5 mg/dL (0.2-2.0); GLOM FILT RATE Estimated 30.8 mL/min (>60); MAGNESIUM 2.1 mg/dL (1.6-3.0); POTASSIUM 3.4 mmol/L (3.5-5.1); PROTEIN TOTAL SERUM 6.2 g/dL (6.0-8.3)
[2016-11-28 06:42] LABS: HEMATOCRIT 29.3 % (38.0-50.0); HEMOGLOBIN 9.8 gm/dL (13.0-16.0); MEAN CORPUSCULAR HEMOGLOBIN 33.6 PG (28-34); MEAN CORPUSCULAR HGB CONC 33.6 g/dL (30-36); MEAN PLATELET VOLUME 8.2 FL (6.5-11.5); RED BLOOD COUNT 2.93 X10e (3.90-5.60); RED CELL DISTRIBUTION WIDTH 13.6 % (11.0-15.5); WHITE BLOOD COUNT 5.7 X10e3 (4.0-10.5)
[2016-11-28 06:52] LABS: BUN/CREATININE RATIO 27.27; CALCIUM SERUM 9.2 mg/dL (8.4-10.2); CREATININE SERUM 2.2 mg/dL (0.6-1.4); GLOM FILT RATE Estimated 27.5 mL/min (>60); MAGNESIUM 2.1 mg/dL (1.6-3.0); POTASSIUM 3.7 mmol/L (3.5-5.1)
== END 2016-11-28 16:09 | DRG 291 ==
LOC: CED 08:28 → C3A PCU 11:40 → CEDOF 11:40 → C3A PCU 11:45 → CEDOF 11:45 → CED 11:45 → C3A PCU 16:49 → CEDOF 16:49 → C3A PCU 11-21 06:45
PROVIDERS: Emergency Medicine; Family Medicine; Internal Medicine; Internal Medicine Cardiovascular Disease; Internal Medicine Nephrology
PROC: B24BYZZ Ultrasonography of Heart with Aorta using Other Contrast (ICD-10-PCS; principal; 2016-11-19)
DX: I13.0 Hypertensive heart and chronic kidney disease with heart failure and stage 1 through stage 4 chronic kidney disease, or unspecified chronic kidney disease (principal); I50.33 Acute on chronic diastolic (congestive) heart failure; N17.9 Acute kidney failure, unspecified; E11.22 Type 2 diabetes mellitus with diabetic chronic kidney disease; D69.6 Thrombocytopenia, unspecified; I27.2 Other secondary pulmonary hypertension; N18.3 Chronic kidney disease, stage 3 (moderate); E66.01 Morbid (severe) obesity due to excess calories; D53.9 Nutritional anemia, unspecified; I34.0 Nonrheumatic mitral (valve) insufficiency; Z86.14 Personal history of Methicillin resistant Staphylococcus aureus infection; Z79.4 Long term (current) use of insulin; I49.1 Atrial premature depolarization; I07.1 Rheumatic tricuspid insufficiency; G47.33 Obstructive sleep apnea (adult) (pediatric); Z68.37 Body mass index [BMI] 37.0-37.9, adult
CPT/HCPCS: 36415; 71010; 76770; 80048; 80053; 80076; 81003; 82274; 82550; 82553; 82570; 82607; 82728; 82746; 82947; 83010; 83036; 83540; 83550; 83615; 83735; 83880; 84100; 84156; 84443; 84484; 85025; 85027; 85044; 85610; 85730; 87086; 89190; 93005; 93306; 94760; 96374; 97110; 97116; 97162; 97166; 97530; 97535; 99285; G8978-GP; G8979-GP; G8987-GO; G8988-GO; J1815; J1940

== ENCOUNTER 2016-12-03 11:18 | Inpatient (IN) | payer OTHER ==
--- NOTE | ~2016-12-03 | CT4 ---
[facility] A Service of [facility] & [facility] RADIOLOGY TEXT RESULTS PATIENT: LEESA MCKEON LOCATION: [facility] 331- : 37 UNIT #: [id number] AGE: [address]: Nika Royal MD SEX: M ORDER DR: [id number] [facility] [address] [place], [place] [address] [id number] I MR#: [id number] Acc #: [id number] NAME: LEESA MCKEON. : 1935 SEX: M STUDY DATE/TIME: 12/04/2016 11:55 UNIT: [facility] ROOM: [facility] STUDY DESCRIPTION: CT Abd and Pelv Wo Cont Attending Physician: Nika Royal M.D. Ordering Physician: Nika Royal M.D. Primary Care Physician: Luca Echavarria M.D. MEDICAL IMAGING REPORT This report is preliminary unless electronic signature is present EXAM CT abdomen and pelvis, noncontrast, 12/04/2016. HISTORY 81-year-old male hospital inpatient with lethargy, decreased responsiveness. Elevated serum ammonia levels. Suspected chronic liver disease. Abdominal distension is noted, question ascites. TECHNIQUE CT examination of the abdomen and pelvis was performed without oral or IV contrast. Images are somewhat degraded as the patient moved/breathed throughout the study. This CT exam was performed with one or more of the following radiation dose reduction techniques: automatic exposure control, adjustment of mA and/or kV according to patient size, and iterative reconstruction. FINDINGS ABDOMEN: The liver is small in size and shows a diffusely lobulated contour compatible with hepatic cirrhosis. The spleen is mildly enlarged, measuring about 15.4 cm. There is no upper abdominal ascites. Multiple gallstones within a markedly contracted gallbladder. No bile duct dilatation. Pancreas is negative. There is no ascites within the abdomen or pelvis. Both kidneys are negative with no evidence of urinary obstruction or visible nephrolithiasis. Mild sigmoid diverticulosis. Small bowel and colon are otherwise normal in caliber and appearance, as imaged. Normal-caliber abdominal aorta. PELVIS FINDINGS: Moderately enlarged prostate. Nondistended urinary bladder. Rectum is negative. No inguinal hernia. [facility] A Service of [facility] & [facility] RADIOLOGY TEXT RESULTS PATIENT: LEESA MCKEON LOCATION: [facility] 331-01 : 37 UNIT #: [id number] AGE: [address]: Nika Royal MD SEX: M ORDER DR: IMPRESSION 1. Hepatic cirrhosis with mild splenomegaly. There is no ascites within the abdomen or pelvis. 2. Cholelithiasis. Densely calcified gallstones within a contracted gallbladder. No bile duct dilatation. 3. Minimal sigmoid colonic diverticulosis. 4. Moderate prostate enlargement. Nondistended urinary bladder. Dictated by... Winston Carolina M.D. THIS IS AN ELECTRONICALLY VERIFIED REPORT Winston Carolina M.D. at 12/05/2016 12:51 PM Aarti TD: 12/04/2016 23:22 JOB #: [id number] MEDICAL IMAGING REPORT Page 1 of 1 COPY
--- NOTE | ~2016-12-03 | US6 ---
[facility] A Service of [facility] RADIOLOGY TEXT RESULTS PATIENT: LEESA MCKEON LOCATION: [facility] 331- : 37 UNIT #: [id number] AGE: [address]: Nika Royal MD SEX: M ORDER DR: [id number] [place] [id number] [facility] [place], [place] [address] [id number] I MR#: [id number] Acc #: [id number] NAME: LEESA MCKEON. : 1935 SEX: M STUDY DATE/TIME: 12/03/2016 21:43 UNIT: [address] ROOM: [facility] STUDY DESCRIPTION: US Abdominal Limited Attending Physician: Nika Royal M.D. Ordering Physician: Tonie Cronin M.D. Primary Care Physician: Luca Echavarria M.D. MEDICAL IMAGING REPORT This report is preliminary unless electronic signature is present EXAM Ultrasound abdomen, limited, 12/03/2016 HISTORY 81-year-old male with lethargy and decreased responsiveness. Increased serum immonia levels. Concern for chronic liver disease. 2-day history of abdomen distension. TECHNIQUE Hoskins-scale ultrasound imaging of the right upper quadrant. FINDINGS The examination is essentially nondiagnostic due to non penetration of ultrasound third right upper quadrant structures. This is apparently due to significant overlying bowel gas as well as a small, echodense liver. Of note, subsequent CT examination 12/04/2016 shows a small liver with lobulated contour compatible with likely hepatic cirrhosis as well as mild splenomegaly. Multiple gallstones are present within a markedly contracted gallbladder, these are not visible on ultrasound imaging today. There is no upper abdominal ascites. Pancreas and right kidney are not imaged. IMPRESSION Nondiagnostic examination is noted above. Please see CT examination to follow. Dictated by... Winston Carolina M.D. THIS IS AN ELECTRONICALLY VERIFIED REPORT Winston Carolina M.D. at 12/05/2016 12:51 PM RGW/rnr [facility] A Service of [facility] RADIOLOGY TEXT RESULTS PATIENT: LEESA MCKEON LOCATION: [facility] 331-01 : 37 UNIT #: [id number] AGE: [address]: Nika Royal MD SEX: M ORDER DR: TD: 12/04/2016 23:26 JOB #: [id number] MEDICAL IMAGING REPORT Page 1 of 1 COPY
--- NOTE | ~2016-12-03 | EKG ---
PATIENT: LEESA MCKEON UNIT #: [id number] Ventricular Rate: 70 BPM Atrial Rate: 70 BPM P-R Interval: 216 ms QRS Duration: 90 ms Q-T Interval: 432 ms QTC Calculation(Bezet): 466 ms P Leeds: 88 degrees Calculated R Leeds: 59 degrees Calculated T Leeds: 85 degrees Diagnosis Line: Sinus rhythm with 1st degree A-V block with Diagnosis Line: Premature supraventricular complexes Diagnosis Line: Nonspecific ST and T wave abnormality Diagnosis Line: Abnormal ECG Diagnosis Line: When compared with ECG of 19-NOV-2016 08:56, Diagnosis Line: Sinus rhythm has replaced Atrial fibrillation Diagnosis Line: QRS axis Shifted left Diagnosis Line: Confirmed by PARTH GHOSH MD ([id number]) on Diagnosis Line: 12/03/2016 12:08:47 PM INTERPRETING MD: DAVINA BARNES
--- NOTE | ~2016-12-03 | NM22 ---
[facility] A Service of [facility] & [facility] RADIOLOGY TEXT RESULTS PATIENT: LEESA MCKEON LOCATION: [facility] 331-01 : 37 UNIT #: [id number] AGE: [address]: Nika Royal MD SEX: M ORDER DR: [id number] [facility] [address] [place], [place] [address] [id number] I MR#: [id number] Acc #: [id number] NAME: LEESA MCKEON : 1935 SEX: M STUDY DATE/TIME: 12/06/2016 13:13 UNIT: [address] ROOM: [facility] STUDY DESCRIPTION: NM Hepatobiliary W GB Pharm Attending Physician: Nika Royal M.D. Ordering Physician: Nikolas Medellin M.D. Primary Care Physician: Luca Echavarria M.D. MEDICAL IMAGING REPORT This report is preliminary unless electronic signature is present EXAM HIDA scan 12/06/2016 HISTORY Nausea, vomiting and abdominal bloating for [address] scan of the abdomen and pelvis 12/04/2016 revealed a contracted gallbladder with multiple gallstones. FINDINGS The patient received an intravenous injection of 6 mCi of technetium 99m tagged Choletec for hepatobiliary imaging. There is homogeneous distribution of the radiotracer throughout the liver. Biliary and small bowel activity were clearly seen by 15 minutes postinjection of the radiopharmaceutical. 15-minute sequential images of the abdomen were obtained for 1 hour and delayed images were obtained at 90 minutes and 120 minutes postinjection of the radiopharmaceutical. No gallbladder activity was identified. Findings are characteristic of cystic duct obstruction with possible cholecystitis. Clinical correlation is recommended. IMPRESSION Nonvisualization of the gallbladder after 2 hours of imaging. Findings are concerning for cystic duct obstruction and possible cholecystitis. Clinical correlation is recommended. STAT * RESULT Dictated by... Td Jacques M.D. THIS IS AN ELECTRONICALLY VERIFIED REPORT Td Jacques M.D. at 12/07/2016 2:09 PM [facility] A Service of [facility] RADIOLOGY TEXT RESULTS PATIENT: LEESA MCKEON LOCATION: [facility] 331-01 : 37 UNIT #: [id number] AGE: [address]: Nika Royal MD SEX: M ORDER DR: BILLY/michael TD: 12/06/2016 13:07 JOB #: [id number] MEDICAL IMAGING REPORT Page 1 of 1 COPY
--- NOTE | ~2016-12-03 | CR7 ---
[facility] A Service of [facility] RADIOLOGY TEXT RESULTS PATIENT: LEESA MCKEON LOCATION: [facility] 331- : 37 UNIT #: [id number] AGE: [address]: Nika Royal MD SEX: M ORDER DR: [id number] [facility] [address]. [place], [place] [address] [id number] I MR#: [id number] Acc #: [id number] NAME: LEESA MCKEON. : 1935 SEX: M STUDY DATE/TIME: 12/05/2016 9:40 UNIT: [address] ROOM: [facility] STUDY DESCRIPTION: CR Abdomen Single AP View Attending Physician: Nika Royal M.D. Ordering Physician: Nika Royal M.D. Primary Care Physician: Luca Echavarria M.D. MEDICAL IMAGING REPORT This report is preliminary unless electronic signature is present EXAM Abdomen for feeding tube placement today. COMMENT KUB obtained 09:40 a.m. 12/05/2016 shows the feeding tube terminating in the proximal stomach. Recommend advancement by about 15 cm with followup film for better positioning. IMPRESSION Feeding tube terminates proximal stomach. Recommend advancement by about 15 cm with a followup film for better position. Dictated by... Patricia Riggs M.D. THIS IS AN ELECTRONICALLY VERIFIED REPORT Patricia Riggs M.D. at 12/07/2016 8:39 AM ORIANA/nancy TD: 12/06/2016 08:11 JOB #: [id number] MEDICAL IMAGING REPORT Page 1 of 1 COPY
--- NOTE | ~2016-12-03 | CO ---
Unit #: [id number] #: [id number] Patient: LEESA MCKEON [id number] [address] [place], [place] [address] [id number] I MR#: [id number] NAME: LEESA MCKEON ROOM: 331 Age: 81 Sex: M Admission Date: 12/03/2016 : 1935 Attending Physician: Nika Royal M.D. Primary Care Physician: Luca Echavarria M.D. Consultation Date: 12/05/2016 CONSULTATION REPORT HISTORY OF PRESENT ILLNESS Mr. Mckeon is a 81-year-old gentleman, who is in rehab at [facility] because of recent hospitalization for acute congestive heart failure, and acute worsening of his chronic kidney disease. While at rehab, the patient was noted to become progressively confused, tried to get out of bed and fell. After falling, he was brought here to [facility] for further evaluation. He was found to have rhabdomyolysis, acute on chronic kidney disease, and confusion with hyperammonemia. A CT scan and ultrasound of the abdomen was obtained during his evaluation, and the CT and ultrasound showed changes consistent with cirrhosis which had been previously undiagnosed. He also was found to have cholelithiasis which in reviewing old films he has had since at least 2010. The gallbladder was small and contracted with no pericholecystic fluid, no wall thickening, and no biliary ductal abnormality. The describes nonspecific abdominal pain with nausea for months. She denied any jaundice, fever, or chills. PAST MEDICAL HISTORY Congestive heart failure; chronic kidney disease, stage 3; hypertension; diabetes. He has had previous knee surgery, foot surgery, and wrist surgery. ALLERGIES Omeprazole. HOME MEDICATIONS Include potassium, Carafate, Novolin, Humulin, Lasix, and Tylenol. FAMILY HISTORY Diabetes. SOCIAL HISTORY Currently at rehab and typically lives at home with his . No alcohol, tobacco, or recreational drugs. REVIEW OF SYSTEMS Unobtainable today from the patient. According to , he has had nonspecific abdominal pain and nausea. There has been no hematemesis, hematochezia, melena, or weight loss. PHYSICAL EXAMINATION VITAL SIGNS: Temperature is 97.4, pulse 68, respirations 18, and blood pressure 145/65. GENERAL: The patient is lethargic. He does awaken to name and movement, Unit #: [id number] #: [id number] Patient: LEESA MCKEON but really does not answer questions as he is confused. HEENT: Unremarkable. CARDIAC: Regular rhythm. LUNGS: Clear. ABDOMEN: There is no mass, localized tenderness, or rebound on examination. EXTREMITIES: No edema. NEUROLOGIC: He is moving all four extremities. SKIN: No skin rashes or lesions. DIAGNOSTIC STUDIES LABORATORY RESULTS: Blood gas on 12/04/2016 showed a pH of 7.534, pCO2 of 27, pO2 of 114 on 2 L nasal cannula. Chemistries today showed BUN and creatinine of 49 and 2.0 which is improved since admission, sodium 144, potassium 3.7, chloride 111, CO2 of 21, calcium 9.1, albumin 3.5, total bilirubin 2.3, AST 69, ALT 37, alkaline phosphatase 62, ammonia is down to 86 from a high of 158. Troponin 0.15, CK total 2385. Folate and B12 were normal. Lactic acid is 2.0, TSH 4.35, INR 1.3. White count 7400, hemoglobin 10.3, platelets 114,000. Urinalysis is negative for infection. IMAGING STUDIES: CT of the head, no acute findings. CT of the cervical spine, degenerative disk disease. No cervical fracture. MRI of the brain was nondiagnostic. Ultrasound of the abdomen shows gallstones without evidence of acute cholecystitis or biliary ductal abnormality likely hepatic cirrhosis. CT of the abdomen, the liver and gallbladder both contracted. The spleen is mildly enlarged. No ascites. Multiple gallstones and a contracted gallbladder. No biliary ductal abnormality. Pancreas appears normal. ASSESSMENT AND PLAN A 81-year-old gentleman admitted to the hospital with confusion and was found to have a new onset cirrhosis, hyperammonemia, rhabdomyolysis, acute on chronic kidney disease. We were asked to see the patient because of these gallstones. They have been present since at least 2010 and there is no radiologic or clinical evidence of acute cholecystitis. Given his other medical problems, we will check a HIDA scan to rule out cystic duct obstruction. His cirrhosis needs to be evaluated and hepatitis profile has been ordered and we will order a CT scan guided liver biopsy. Dictated by... Nikolas Medellin M.D. DARA/yuli TD: 12/06/2016 03:05 JOB #: [id number] CONSULTATION REPORT Page 1 of 1 X Nikolas Medellin MD CONSULTATION REPORT
--- NOTE | ~2016-12-03 | CT52 ---
[facility] A Service of [facility] & [facility] RADIOLOGY TEXT RESULTS PATIENT: LEESA MCKEON LOCATION: [facility] : 37 UNIT #: [id number] AGE: [address]: Joe Monet MD SEX: M ORDER DR: [id number] [facility] [address] [place], [place] [address] [id number] MR#: [id number] Acc #: [id number] NAME: LEESA MCKEON. : 1935 SEX: M STUDY DATE/TIME: 12/03/2016 12:29 UNIT: [facility] ROOM: STUDY DESCRIPTION: CT Cervical Spine Wo Cont Attending Physician: Joe Monet M.D. Ordering Physician: Joe Monet M.D. Primary Care Physician: Luca Echavarria M.D. MEDICAL IMAGING REPORT This report is preliminary unless electronic signature is present EXAM Cervical spine CT HISTORY Patient fell today. Neck pain and generalized neck tenderness since falling. TECHNIQUE Thin section imaging was obtained from the skull base to the upper thoracic spine and evaluated at bone and soft tissue windows with multiplanar reformats. This CT exam was performed with one or more of the following radiation dose reduction techniques: automatic exposure control, adjustment of mA and/or kV according to patient size, and iterative reconstruction. FINDINGS Extensive cervical degenerative disc disease is seen. 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 There is moderate degenerative change. 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 This causes severe central stenosis most prominent just to the right of midline. The AP diameter of the spinal canal is between 8 and 9 mm at its minimum at the C2-3 level. Foraminal narrowing is mild bilaterally from disc and facet disease. At C3-4 there is advanced bilateral facet hypertrophy, left greater than right and there is posterior disc and osteophyte formation extending to both uncovertebral joints again greater on the left. Foraminal stenosis is severe on the left at C3-4 and moderate on the right. At C4-5 there is a broad-based posterior osteophyte extending to the right STS. [facility] A Service of [facility] & [facility] RADIOLOGY TEXT RESULTS PATIENT: LEESA MCKEON [id number] 37 UNIT #: [id number] AGE: [address]: Joe Monet MD SEX: M ORDER DR: uncovertebral joint. The right foramen is severely narrowed. There is also advanced right-sided facet hypertrophy at this level as well as moderate facet disease on the left. At C5-6 there is a broad-based posterior disc osteophyte complex that extends much more to the left than to the right. Central stenosis is severe especially involving the left side of the canal. In the midline the canal diameter is about 12 mm but to the left of midline it measures approximately 7 mm. There is bilateral facet hypertrophy that is moderate on the left and severe on the right. Foraminal stenosis is severe bilaterally. At C6-7 the disc is collapsed. There is a broad-based posterior disc osteophyte complex with moderately severe central stenosis. The AP diameter of the spinal canal at C6-7 is 10-11 mm. Foraminal stenosis is moderate bilaterally slightly greater on the left. At C7-T1 there is moderate left facet hypertrophy. The canal and foramina are widely patent. No cervical fractures are seen and no fractured or interlocked facets are noted. No paraspinous soft tissue masses are seen. IMPRESSION Advanced multilevel degenerative disc and facet disease as described above level by level. There is severe canal narrowing to the right of midline at C2-3 and to the left of midline at C5-6. There is no evidence of cervical fracture. Dictated by... Nikolas Doe M.D. THIS IS AN ELECTRONICALLY VERIFIED REPORT Nikolas Doe M.D. at 12/03/2016 4:47 PM Mirian TD: 12/03/2016 16:19 JOB #: [id number] MEDICAL IMAGING REPORT Page 1 of 1 COPY
--- NOTE | ~2016-12-03 | HP ---
Unit #: [id number] #: [id number] Patient: LEESA MCKEON [id number] [facility]. [place], [place] [address] [id number] MR#: [id number] NAME: LEESA MCKEON. ROOM: Age: 81 Sex: M Admission Date: 12/03/2016 : 1935 Attending Physician: Joe Monet M.D. Primary Care Physician: Luca Echavarria M.D. HISTORY AND PHYSICAL CHIEF COMPLAINT Fall at snf, confusion. HISTORY OF PRESENT ILLNESS The patient is a 81-year-old male with past medical history of chronic kidney disease, hypertension, CHF, diabetes, who presented to the emergency department from rehab for evaluation of the above. Of note the patient was hospitalized at [facility] November 19 through November 28, 2016 for oclws-mx-atlfazd diastolic heart failure and nmvwb-br-urzbwnp kidney disease. He was discharged to rehab where he currently resides. History is obtained from chart review and discussion with the ER staff as well as from the patient's who is at bedside. The patient's states that she was with him yesterday. She left around 8:00 p.m. on the evening prior to admission. She states that just prior to leaving she asked the patient a question and he answered inappropriately. She then repeated the question and he answered it appropriately. He then went to sleep. This morning he was confused. He apparently fell out of bed. He has had nausea but no vomiting. He had not had any other complaints. At baseline the patient is oriented x3. In the emergency department initial pulse and blood pressure were 70 and 121/[address] of the head was done and showed nothing acute. CT of the cervical spine showed no fracture. Chest x-ray was negative. Laboratory unremarkable only for ammonia level of 158. The patient has no known liver disease. PAST MEDICAL HISTORY 1. Admission to [facility] November 19 through November 28, 2016 for pzusd-qq-rnunvmf congestive heart failure and kppbb-lr-irtghgp kidney disease. 2. Chronic kidney disease, stage 3, with a baseline creatinine around 1.49. Creatinine in October and November has been around 2. 3. Hypertension. 4. Congestive heart failure. The patient had an echocardiogram during the last admission. Per the discharge summary it showed diastolic heart failure with relatively normal systolic function. 5. Hypertension. 6. Diabetes. PAST SURGICAL HISTORY Unit #: [id number] #: [id number] Patient: LEESA MCKEON 1. Right knee surgery. 2. Left foot surgery. 3. Right wrist surgery. SOCIAL HISTORY The patient lives with his . He has a walker. FAMILY HISTORY Family history is notable for his paternal grandmother having diabetes. ALLERGIES Omeprazole causes nausea and vomiting. HOME MEDICATIONS Per the discharge summary include: 1. Potassium 20 mEq b.i.d. 2. Carafate 1 g q.a.c. 3. Novolin low dose sliding scale. 4. Humulin N 40 units q.a.m. and 35 units nightly. 5. Lasix 40 mg b.i.d. 6. Tylenol 650 q.6 h. p.r.n. Home medications will need to be reviewed and verified. REVIEW OF SYSTEMS A complete review of systems is unobtainable from the patient due to altered mental status but negative except as indicated in the HPI per family. DIAGNOSTIC TESTS CARDIOVASCULAR: EKG shows sinus rhythm with a first-degree AV block with premature supraventricular complex at a rate of 70 beats per minute. IMAGING: Chest x-ray nothing acute. CT of the head shows nothing acute. CT of the cervical spine shows no fracture. LABORATORY: Complete blood count notable for hemoglobin and hematocrit of 11 and 32.3 respectively, platelets are 125. Troponin is less than 0.05. INR is 1.3. Ammonia level is 158. Comprehensive metabolic panel notable for glucose of 222, BUN and creatinine 54 and 2.3 respectively, AST is 59, total bilirubin 2.5. Urinalysis is essentially negative. PHYSICAL EXAMINATION VITAL SIGNS: Temperature is 97.8, pulse 70, respirations 14, blood pressure 121/55, oxygen saturation is 99% on room air. GENERAL: The patient is a male who is awake and alert. HEENT: The head is atraumatic. Mucous membranes are moist. NECK: Neck is supple. Trachea is midline. CARDIOVASCULAR: Regular rate and rhythm. RESPIRATORY: Lungs are clear to auscultation bilaterally with no increased work of breathing. ABDOMEN: Abdomen is soft, nontender, with bowel sounds present in all four quadrants. EXTREMITIES: Show 1+ pitting edema. NEUROLOGIC: The patient is oriented to person only. He is moving all Unit #: [id number] #: [id number] Patient: LEESA MCKEON extremities. He follows commands. PSYCHIATRIC: The patient is somewhat inattentive. He is cooperative. SKIN: Skin of examined areas is warm and dry. The patient does have a wound on the lateral aspect of the right ankle. ASSESSMENT The patient is a 81-year-old male with: 1. Altered mental status. 2. Hyperammonemia. The patient's ammonia level is 158. There is no history of liver disease. 3. Chronic kidney disease, stage 3, followed by Dr. Pulliam. The patient's creatinine was 2.2 on the day of discharge, November 28, 2016. It is 2.3 today. 4. Hypertension. 5. Congestive heart failure with preserved ejection fraction. 6. Diabetes. 7. Right ankle wound present on admission. PLAN 1. Admit for observation to intermediate level. 2. N.p.o. until speech evaluation. 3. Speech therapy to evaluate and treat. 4. Neuro checks. 5. TSH, B12 and folate. 6. Blood cultures x2. 7. Repeat ammonia level now. 8. MRI of the brain without contrast for further evaluation of altered mental status. 9. Serial cardiac enzymes. 10. Strict Is and Os. 11. Daily weights. 12. Low dose sliding-scale insulin with Accu-Cheks. 13. Wound care consult regarding right ankle wound. 14. Bedrest. 15. Fall precautions. 16. SCDs for DVT prophylaxis. 17. Repeat labs in the morning including ammonia level. 18. Additional workup and consultants based on above. Dictated by Tonie Cronin M.D. MONA/joe TD: 12/03/2016 18:01 JOB #: [id number] Unit #: [id number] #: [id number] Patient: LEESA CMKEON HISTORY AND PHYSICAL Page 1 of 1 X Tonie Cronin MD HISTORY AND PHYSICAL
--- NOTE | ~2016-12-03 | CT71 ---
[facility] A Service of [facility] RADIOLOGY TEXT RESULTS PATIENT: LEESA MCKEON LOCATION: [facility] : 37 UNIT #: [id number] AGE: [address]: Joe Monet MD SEX: M ORDER DR: [id number] [facility] [address] [place], [place] [address] [id number] E MR#: [id number] [facility] #: [id number] NAME: LEESA MCKEON. : 1935 SEX: M STUDY DATE/TIME: 12/03/2016 12:29 UNIT: [facility] ROOM: STUDY DESCRIPTION: CT Head Wo Contrast Attending Physician: Joe Monet M.D. Ordering Physician: Joe Monet M.D. Primary Care Physician: Luca Echavarria M.D. MEDICAL IMAGING REPORT This report is preliminary unless electronic signature is present EXAM CT of the head without contrast. INDICATION Mild confusion starting yesterday. Patient also had a fall today. TECHNIQUE Axial CT images were obtained from the vertex of the skull through the skull base. No intravenous contrast material was administered. This CT exam was performed with one or more of the following radiation dose reduction techniques: automatic exposure control, adjustment of mA and/or kV according to patient size, and iterative reconstruction. FINDINGS No acute intracranial hemorrhage is identified. There is diffuse cerebral atrophy with compensatory ventricular dilatation which is in keeping with the age of 81. There is diffuse cerebral atrophy with compensatory ventricular dilatation which is in keeping with the patient's age of 81. There is no midline shift or mass effect. Patient has some mucosal thickening within the ethmoid sinuses bilaterally. Visualized paranasal sinuses and mastoid air cells appear clear. No aggressive osseous abnormalities are seen. No calvarial fracture is noted. No focal soft tissue abnormalities are seen. IMPRESSION 1. No acute intracranial process is identified, specifically, there is no evidence of acute hemorrhage, mass lesion, or acute infarct. 2. Mild sinus inflammatory changes. Dictated by... [facility] A Service [facility] RADIOLOGY TEXT RESULTS PATIENT: LEESA MCKEON [id number] 37 UNIT #: [id number] AGE: [address]: Joe Monet MD SEX: M ORDER DR: Anne-Marie Maldonado M.D. THIS IS AN ELECTRONICALLY VERIFIED REPORT Anne-Marie Madlonado M.D. at 12/03/2016 5:16 PM AFF/meganw TD: 12/03/2016 16:09 JOB #: [id number] MEDICAL IMAGING REPORT Page 1 of 1 COPY
--- NOTE | ~2016-12-03 | TOC ---
Unit #: [id number] #: [id number] Patient: LEESA MCKEON [id number] [facility] [address]. [place], [place] [address] [id number] I MR#: [id number] NAME: LEESA MCKEON. ROOM: 331 Age: 81 Sex: M Admission Date: 12/03/2016 : 1935 Attending Physician: Nika Royal M.D. Primary Care Physician: Luca Echavarria M.D. TRANSFER OF CARE SUMMARY TODAY'S DATE 12/08/2016 REASON FOR ADMISSION Fall at rehab facility, increased confusion. HISTORY OF PRESENT ILLNESS The patient is a 81-year-old male with underlying history of chronic kidney disease, baseline creatinine 1.4 to 1.8, hypertension, chronic diastolic heart failure, diabetes, morbid obesity, who had recently been admitted to [facility] in late part of October 2016 for acute and chronic diastolic heart failure as well as acute and chronic kidney disease. Ultimately, he was discharged to rehab. While he was evaluated for rehab, began noticing that patient had increased confusion, as well as fairly frequent falls. Apparently in the past, he was alert and oriented x3 and this represented a new finding. Therefore, he was transferred from rehab facility to [facility] ER. He underwent a CT head noncontrast, which showed no acute process. CT of cervical spine showed no acute process. Chest x-ray was negative. However, laboratory studies did yield an elevated pneumonia level of 158. He has no prior history of any alcohol abuse and this represented a new finding. Through this hospital course, he ultimately underwent a CT of abdomen and pelvis without contrast, as well as an ultrasound of abdomen and HIDA scan. On his CT of abdomen and pelvis, there were results consistent with hepatic cirrhosis, as well as cholelithiasis. Ultrasound of the gallbladder as well as HIDA scan revealed similar findings. HIDA scan showed acute versus chronic cholecystitis. Subsequently, this also prompted an evaluation from [facility]. Through this hospital course, initially secondary to poor mentation, patient had a Dobbhoff tube which was placed. Lactulose was initiated. His ammonia level has now drifted downwards. His Dobbhoff tube has been removed. He has become more alert and oriented. At the present time, on today's evaluation, he is currently alert and oriented x2. His ammonia level this morning is 50. He did undergo liver biopsy through this hospital course as performed by Unit #: [id number] #: [id number] Patient: LEESA MCKEON Interventional Radiology, still the etiology for his cirrhosis is not clear. His hepatitis panel was negative. At this point in time, while we await liver biopsy results, we will continue with his lactulose. Please note, the patient did have an MRI of his brain, secondary to motion defect, did not show any acute process, although, images were not clear. Also noted, this patient does have a baseline history of anemia, likely of chronic disease, secondary to chronic kidney disease, and his usual baseline is between 9 to 10. Patient likely will require discharge to rehab facility once again at the time of discharge, once etiology of cirrhosis, as well as elevated pneumonia level is ascertained. CURRENT CLINICAL DIAGNOSIS As of 12/08/2016: 1. Toxic metabolic encephalopathy. 2. Hepatic encephalopathy. 3. Cirrhosis, new diagnosis. 4. Abnormal HIDA scan. 5. Cholelithiasis. 6. Chronic diastolic heart failure. Patient appears euvolemic. 7. Chronic kidney disease. 8. Anemia of chronic disease. 9. Severe morbid obesity. 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 1. 11. Dictated by... Nika Royal M.D. ANNEMARIE/valarie TD: 12/08/2016 15:42 JOB #: [id number] TRANSFER OF CARE SUMMARY Page 1 of 1 X Nika Royal MD X TRANSFER OF CARE SUMMARY
--- NOTE | ~2016-12-03 | MR18 ---
[facility] A Service of [facility] RADIOLOGY TEXT RESULTS PATIENT: LEESA MCKEON LOCATION: [facility] 331- : 37 UNIT #: [id number] AGE: [address]: Nika Royal MD SEX: M ORDER DR: [id number] [facility] [address] [place], [place] [address] [id number] I MR#: [id number] Acc #: [id number] NAME: LEESA MCKEON. : 1935 SEX: M STUDY DATE/TIME: 12/03/2016 18:47 UNIT: [address] ROOM: [facility] STUDY DESCRIPTION: MR Brain Wo Contrast Attending Physician: Nika Royal M.D. Ordering Physician: Tonie Cronin M.D. Primary Care Physician: Luca Echavarria M.D. MRI CENTER REPORT This report is preliminary unless electronic signature is present. EXAM MRI brain, 12/03/2016. HISTORY Altered mental status. Confusion since yesterday. Fall today. No loss of consciousness. GFR 23, creatinine 2.3. Claustrophobic. Nurse gave Ativan, but patient tried to climb out of scanner. Legs off table. Had to stop exam. FINDINGS The following MR sequences were obtained through the brain: T1 sagittal and axial, FLAIR T2 diffusion weighted axial, ADC map axial. The examination is severely degraded by persistent motion artifact and is virtually nondiagnostic. When the patient is better able to assist with the examination, repeat examination recommended if clinically warranted. The diffusion weighted sequence is less affected by motion artifact. There is no clear indication of acute to subacute ischemia. The parietal vertices are not entirely included. The other sequences are virtually completely nondiagnostic due to motion artifact. There is no gross midline shift. I see no gross intracranial mass effect. Nonetheless, significant abnormalities could be obscured by the severe motion artifact. IMPRESSION 1. Virtually nondiagnostic examination. There is extreme motion artifact on multiple sequences. Repeat examination recommended when the patient is better able to assist with the study. 2. The diffusion weighted sequences are suboptimal, but give no clear indication of acute ischemic event. The other sequences are virtually nondiagnostic. There is no gross evidence of intracranial mass effect, no large hemorrhage is suggested. Significant abnormalities could be obscured. Repeat examination recommended when patient better able to tolerate study. [facility] A Service of [facility] RADIOLOGY TEXT RESULTS PATIENT: LEESA MCKEON LOCATION: [place] [address] : 37 UNIT #: [id number] AGE: [address]: Nika Royal MD SEX: M ORDER DR: Dictated by... Leesa Huizar M.D. THIS IS AN ELECTRONICALLY VERIFIED REPORT Leesa Huizar M.D. at 12/04/2016 10:49 PM Marco TD: 12/04/2016 10:18 JOB #: [id number] MRI CENTER REPORT Page 1 of 1 COPY
--- NOTE | ~2016-12-03 | EKG ---
PATIENT: LEESA MCKEON UNIT #: [id number] Ventricular Rate: 60 BPM Atrial Rate: 312 BPM QRS Duration: 104 ms Q-T Interval: 482 ms QTC Calculation(Bezet): 482 ms Calculated R Slaton: 103 degrees Calculated T Slaton: 69 degrees Diagnosis Line: Normal sinus rhythm with 1st degree A-V block Diagnosis Line: Possible type one second degree AV block Diagnosis Line: Rightward axis Diagnosis Line: Possible Inferior infarct , age undetermined Diagnosis Line: Abnormal ECG Diagnosis Line: No previous ECGs available Diagnosis Line: Confirmed by BRITTANY WORKMAN MD ([id number]) on 12/10/2016 Diagnosis Line: 10:57:09 AM INTERPRETING MD: JACINTA BARNES
--- NOTE | ~2016-12-03 | CR72 ---
[facility] A Service of [facility] RADIOLOGY TEXT RESULTS PATIENT: LEESA MCKEON LOCATION: [facility] : 37 UNIT #: [id number] AGE: [address]: Joe Monet MD SEX: M ORDER DR: [id number] [facility] [address] [place], [place] [address] [id number] E MR#: [id number] Acc #: [id number] NAME: LEESA MCKEON. : 1935 SEX: M STUDY DATE/TIME: 12/03/2016 12:18 UNIT: [facility] ROOM: STUDY DESCRIPTION: CR Chest Single View Portable Attending Physician: Joe Monet M.D. Ordering Physician: Joe Monet M.D. Primary Care Physician: Luca Echavarria M.D. MEDICAL IMAGING REPORT This report is preliminary unless electronic signature is present EXAM Chest portable, 12/03/2016, 1218 hours. CLINICAL HISTORY 81-year-old man with 2-day history of mild chest congestion. Extreme lethargy, somewhat incoherent today. COMPARISON 11/19/2016 FINDINGS Single upright portable view demonstrates mild cardiomegaly unchanged. Mediastinal, hilar, and aortic contours are normal. Lung volumes are low with stable calcified granulomata. There is no evidence of edema, pneumonia or effusion. IMPRESSION 1. Stable cardiomegaly and tortuous aorta. 2. Slightly low lung volumes with stable benign calcified granulomatous changes. No acute pulmonary or pleural findings. Dictated by... Yolanda Harrison M.D. THIS IS AN ELECTRONICALLY VERIFIED REPORT Yolanda Harrison M.D. at 12/03/2016 5:18 PM MITCH/valarie TD: 12/03/2016 15:27 JOB #: [id number] MEDICAL IMAGING REPORT [facility] A Service of [facility] RADIOLOGY TEXT RESULTS PATIENT: LEESA MCKEON LOCATION: [facility] : 37 UNIT #: [id number] AGE: [address]: Joe Monet MD SEX: M ORDER DR: Page 1 of 1 COPY
--- NOTE | ~2016-12-03 | CR6 ---
[facility] A Service of [facility] & [facility] RADIOLOGY TEXT RESULTS PATIENT: LEESA MCKEON LOCATION: [facility] 331- : 37 UNIT #: [id number] AGE: [address]: Nika Royal MD SEX: M ORDER DR: [id number] [facility] [address] [place], [place] [address] [id number] I MR#: [id number] Acc #: [id number] NAME: LEESA MCKEON : 1935 SEX: M STUDY DATE/TIME: 12/05/2016 17:22 UNIT: [address] ROOM: [facility] STUDY DESCRIPTION: CR Abdomen Portable Sng View Attending Physician: Nika Royal M.D. Ordering Physician: Nika Royal M.D. Primary Care Physician: Luca Echavarria M.D. MEDICAL IMAGING REPORT This report is preliminary unless electronic signature is present EXAM Portable abdomen for Dobbhoff tube placement 12/05/2016. HISTORY Dobbhoff tube placement. FINDINGS Dobbhoff tube is partially coiled within the upper third of the stomach. Dictated by... Winston Carolina M.D. THIS IS AN ELECTRONICALLY VERIFIED REPORT Winston Carolina M.D. at 12/07/2016 8:50 AM POLY/dhruv TD: 12/06/2016 10:31 JOB #: [id number] MEDICAL IMAGING REPORT Page 1 of 1 COPY
--- NOTE | ~2016-12-03 | CR6 ---
[facility] A Service of [facility] & [facility] RADIOLOGY TEXT RESULTS PATIENT: LEESA MCKEON LOCATION: [facility] 331- : 37 UNIT #: [id number] AGE: [address]: Nika Royal MD SEX: M ORDER DR: [id number] [facility] [address] [place], [place] [address] [id number] I MR#: [id number] Acc #: [id number] NAME: LEESA MCKEON : 1935 SEX: M STUDY DATE/TIME: 12/05/2016 5:54 UNIT: [address] ROOM: [address] [place] [address] DESCRIPTION: CR Abdomen Portable Sng View Attending Physician: Nika Royal M.D. Ordering Physician: Nika Royal M.D. Primary Care Physician: Luca Echavarria M.D. MEDICAL IMAGING REPORT This report is preliminary unless electronic signature is present EXAM Abdomen portable single view HISTORY Feeding tube placement today. COMMENT Two views of the lower chest upper abdomen submitted for review from 05:54 a.m. 12/05/2016. There is no feeding tube seen. If one has been placed, it should be removed. IMPRESSION No feeding tube is seen on films of the lower chest upper abdomen. If one has been placed, it should be removed. STAT * RESULT Dictated by... Patricia Riggs M.D. THIS IS AN ELECTRONICALLY VERIFIED REPORT Patricia Riggs M.D. at 12/05/2016 7:17 AM ORIANA/michael TD: 12/05/2016 06:58 JOB #: [id number] MEDICAL IMAGING REPORT Page 1 of 1 COPY
--- NOTE | ~2016-12-03 | CO ---
Unit #: [id number] #: [id number] Patient: LEESA MCKEON [id number] [address] [place], [place] [address] [id number] I MR#: [id number] NAME: LEESA MCKEON ROOM: 331 Age: 81 Sex: M Admission Date: 12/03/2016 : 1935 Attending Physician: Nika Royal M.D. Primary Care Physician: Luca Echavarria M.D. Consultation Date: 12/06/2016 CONSULTATION REPORT REASON FOR CONSULTATION Cirrhosis of the liver. HISTORY OF PRESENTING ILLNESS Mr. Mckeon is a 81-year-old gentleman with multiple chronic problems, was admitted when was noticed to be significantly confused in a rehab center and on arrival here, he was noticed to have high ammonia level. CT scan suggested new onset cirrhosis. He was treated with lactulose and Xifaxan and seemed to be his mentation has returned back to normal. The patient denies any history of nausea, vomiting, or hematemesis. Denies any abdominal pain. Denies any history of excessive alcohol. Does not drink at all at this point. He has never had any liver disease in the past. He is a diabetic and morbidly obese, has been for a long time. PAST MEDICAL HISTORY Significant for chronic renal disease, congestive heart failure, hypertension, type 2 diabetes mellitus. He is status post multiple surgeries on joints. SOCIAL HISTORY Denies alcohol or drug abuse. He denies any smoking. FAMILY HISTORY Noncontributory. ALLERGIES To omeprazole. MEDICATIONS At home prior to admission included potassium, Carafate, Novolin insulin, Lasix, and Tylenol. REVIEW OF SYSTEMS Complete 10-point review of systems was done, which is unremarkable other than as mentioned above. PHYSICAL EXAMINATION GENERAL: The patient is alert and oriented at this point, seems to be weak. No acute distress. VITAL SIGNS: Stable. Afebrile. HEENT: Pupils equal and reactive. Oral mucosa moist. NECK: No JVD. No lymphadenopathy. Unit #: [id number] #: [id number] Patient: LEESA MCKEON CHEST: Clear to auscultation bilaterally. CARDIOVASCULAR: Regular rate and rhythm. No murmurs. ABDOMEN: Soft, nontender, and nondistended. He is morbidly obese. EXTREMITIES: With significant edema bilaterally. NEUROLOGIC: Grossly intact. No focal sensory or motor deficits. DIAGNOSTIC STUDIES IMAGING STUDIES: CT scan was consistent with cirrhosis of liver, also with splenomegaly. No ascites noted and gallstones were noted also. HIDA scan was done today which shows nonvisualization of gallbladder. LABORATORY RESULTS: BUN and creatinine is at 48 and 1.9, glucose at 558. Bilirubin at 2.6, mostly indirect. AST of 55. Platelet count of 114, hemoglobin 10.3. Ammonia level 84, was 158 on arrival. ASSESSMENT AND PLAN 1. 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 Other disease need to be ruled out. Elevated ammonia and mental status changes again secondary to hepatic encephalopathy seems to be resolving. We will continue with lactulose and Xifaxan for now. We will also put him on low sodium diet. 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 2. Diabetes mellitus. 3. Congestive heart failure. 4. Obesity. Advised on diet and exercise and control diabetes mellitus. Thank you, Dr. Cronin for this interesting consult. We will follow along. Dictated by... Karina Aguirre/yuli TD: 12/06/2016 19:26 JOB #: [id number] CONSULTATION REPORT Page 1 of 1 X Jarvis Madera MD X CONSULTATION REPORT
--- NOTE | ~2016-12-03 | CO ---
Unit #: [id number] #: [id number] Patient: LEESA MCKEON [id number] [address] [place], [place] [address] [id number] I MR#: [id number] NAME: LEESA MCKOEN ROOM: 331 Age: 81 Sex: M Admission Date: 12/03/2016 : 1935 Attending Physician: Nika Royal M.D. Primary Care Physician: Luca Echavarria M.D. Consultation Date: 12/04/2016 CONSULTATION REPORT REASON FOR CONSULTATION Chronic kidney disease. HISTORY OF PRESENT ILLNESS Mr. Mckeon is an elderly 81-year-old male, whom we were asked to see for management of chronic kidney disease while he is here. I have seen the patient in the office a few times, where his baseline creatinine has been in the mid 1s, but after his discharge here a few weeks ago for diastolic heart failure his creatinine had creeped into the low 2s with needed diuresis and it looks like that is his new baseline. The patient was admitted after a fall and confusion at his rehab facility. The patient is currently very lethargic and very difficult to arouse. He was found to be in rhabdomyolysis upon admission and IV fluids have been started. The lethargy is thought to be due to elevated ammonia levels but he has no known underlying history of cirrhosis. GI has been asked to see. He just got back from a CT scan, and again remains lethargic. There is no obvious pain or respiratory distress. PAST MEDICAL HISTORY Significant for longstanding diabetes with retinopathy and neuropathy, chronic kidney disease, obesity, hypertension, previous DVT, history of kidney stones in the distant past, obstructive sleep apnea, history of peptic ulcer disease. PAST SURGICAL HISTORY Knee surgery as well as left foot, and other orthopedic procedures. HOME MEDICATIONS Insulin, vitamin D daily, Lasix 20 mg b.i.d., Phenergan p.r.n., Carafate 1 g q.i.d., Zestril 2.5 mg daily which was held, Aldactone 25 mg daily which was held, and Protonix 40 mg daily. ALLERGIES He has no known drug allergies, but does have some nausea and vomiting with omeprazole and Nexium. FAMILY HISTORY Likely noncontributory, the patient is not able to verbalize any history. SOCIAL HISTORY The patient is . is not present. No alcohol, tobacco, or drug abuse that I am aware of. REVIEW OF SYSTEMS Unit #: [id number] #: [id number] Patient: LEESA MCKEON A complete 12-point review of systems was completed with the above findings. Further review of systems was just not able to be done with the patient's lethargy and confusion and somnolence. There has been no reported fevers or chills. No GI distress with vomiting or diarrhea. No reports of hematuria. No reports of rashes. Unless otherwise indicated, the review of systems was not able to be obtained. PHYSICAL EXAMINATION VITAL SIGNS: The patient is afebrile, pulse 65, respiratory rate 18, and blood pressure 123/48. GENERAL: This is a 81-year-old male, who is somnolent and very difficult to arouse but in no acute distress. HEENT: Head is atraumatic and normocephalic. Eyes show pink conjunctivae. No nasal drainage or nosebleed. Oropharynx is slightly dry. No thrush. NECK: Thick with no JVD appreciated. HEART: Regular rate and rhythm with no significant murmur or rub appreciated. LUNGS: Clear anteriorly with no wheezing or rhonchi. Breathing is nonlabored. ABDOMEN: Obese, soft, nontender. There are bowel sounds present. EXTREMITIES: No lower extremity, clubbing, or cyanosis. He does have trace ankle edema bilaterally. Legs are big. SKIN: Without rashes. LYMPHATIC: There is no neck or cervical lymphadenopathy. MUSCULOSKELETAL: No noted CVA tenderness to palpation. DIAGNOSTIC STUDIES LABORATORY RESULTS: Blood cultures so far are negative. ABG this morning pH of 7.534, pCO2 27, PO2 114, bicarb 23. CK level was 2300. CBC this morning, white count 6, hemoglobin 10.6, and platelet count 117. Chemistry this morning; sodium 138, potassium 3.6, chloride 107, bicarb 22, glucose 154, BUN 53, and creatinine 2.3. CK level on that lab was 2500. Ammonia level was high at 123 with a lactic acid of 2. Admission CK level was 1015. With normal TSH level and an unremarkable urinalysis with no blood or protein. Admission creatinine was 2.3 as well, looking back at his discharge his creatinine was 2.2 on 11/28/2016. IMAGING STUDIES: MRI of the brain was difficult due to motion, no acute event noted however. Admission chest x-ray showed no edema or effusions. Kidney ultrasound was done during that admission. Left kidney was not able to be seen due to bowel gas. There was moderate right renal atrophy. ASSESSMENT AND PLAN 1. Chronic kidney disease, stage 3. The patient's kidney function does look stable compared to his prior discharge numbers. Certainly NSAIDs and IV contrast study should be avoided while here. We will monitor and make further recommendations as needed. 2. Congestive heart failure, which is diastolic in nature. The patient looks well compensated at this time by exam and x-ray and with his rhabdomyolysis we will need to hold his Lasix and give fluids. Of note, he was on Lasix 40 mg b.i.d. at discharge, not the 20 mg twice a day noted Unit #: [id number] #: [id number] Patient: LEESA MCKEON and he was not on Aldactone at discharge either. 3. Rhabdomyolysis. We will continue IV fluids. 4. History of hypertension, off medications at the time of discharge. 5. History of diabetes, on insulin. 6. Elevated ammonia. Etiology is unclear. CT scan has been ordered. With results pending. I do see of the abdomen and pelvis from 04/2011 and at that time, the liver was noted to be within normal limits. 7. Confusion and lethargy suspected to be due to hepatic encephalopathy with elevated ammonia. GI has been asked to see. 8. Pulmonary has been asked to see as well for concern about protecting his airway and questionable need for intubation. I would like to thank Dr. Cronin for this consult and the opportunity to participate in evaluation and care of Mr. Mckeon. Dictated by... Rocael Pulliam Jr., M.D. SARAHI/yuli TD: 12/06/2016 02:14 JOB #: [id number] CONSULTATION REPORT Page 1 of 1 X Rocael Pulliam MD CONSULTATION REPORT
--- NOTE | ~2016-12-03 | DS ---
Unit #: [id number] #: [id number] Patient: LEESA MCKEON [id number] [address] [place], [place] [address] [id number] I MR#: [id number] NAME: LEESA MCKEON. ROOM: 331 Age: 81 Sex: M Admission Date: 12/03/2016 : 1935 Discharge Date: 12/10/2016 Attending Physician: Mery Chacon M.D. Primary Care Physician: Luca Echavarria M.D. DISCHARGE SUMMARY FINAL DIAGNOSES 1. Toxic metabolic encephalopathy. 2. Liver cirrhosis with elevated ammonia. 3. Chronic kidney disease. 4. Rhabdomyolysis. SECONDARY DIAGNOSES 1. Hypertension. 2. Chronic kidney disease. 3. Diastolic heart failure. 4. Diabetes mellitus. 5. Morbid obesity. 6. History of atrial fibrillation versus frequent premature atrial contractions. CONSULTS 1. Pulmonary major gifts officer, Dr. Grove. 2. Nephrology, Dr. Pulliam. 3. Cardiology, Dr. Arias. 4. Dr. Madera. 5. [facility], Dr. Ruby. HOSPITAL COURSE The patient is a 81-year-old gentleman who presented with confusion. He was noted to have toxic metabolic encephalopathy and he had elevated ammonia. With lactulose, this improved. Hepatitis panel was negative. He had (1) biopsy recently. Other procedures he has had during this admission include an EGD which showed now varices but diffuse gastritis and duodenitis. He was put on Protonix 40 mg p.o. b.i.d. and spironolactone. He is evaluated and suitable and stable for discharge and will discharge in stable condition. MEDICATION ON DISCHARGE 1. Xifaxan 550 mg twice daily. 2. Lasix 40 mg p.o. twice daily. 3. Humulin N 20 units subcu daily before breakfast. 4. Humulin N 15 units subcu at bedtime. 5. NovoLog sliding scale. 6. Spironolactone 25 mg p.o. daily. 7. Protonix 40 mg p.o. daily. 8. Potassium 20 mEq p.o. twice daily. 9. Vitamin D3 2,000 units p.o. daily. (2) discharged in stable condition to rehab. Unit #: [id number] #: [id number] Patient: LEESA MCKEON Time spent coordinating discharge is about 32 minutes. Dictated by... Karina Smith TD: 12/10/2016 11:53 JOB #: [id number] DISCHARGE SUMMARY Page 1 of 1 X Bianca Castillo MD X DISCHARGE SUMMARY
--- NOTE | ~2016-12-03 | CR6 ---
[facility] A Service of [facility] & [facility] RADIOLOGY TEXT RESULTS PATIENT: LEESA MCKEON LOCATION: [facility] 331- : 37 UNIT #: [id number] AGE: [address]: Nika Royal MD SEX: M ORDER DR: [id number] [facility] [address] [facility]. [place], [place] [address] [id number] I MR#: [id number] Acc #: [id number] NAME: LEESA MCKEON : 1935 SEX: M STUDY DATE/TIME: 12/04/2016 15:44 UNIT: [address] ROOM: [facility] STUDY DESCRIPTION: CR Abdomen Portable Sng View Attending Physician: Nika Royal M.D. Ordering Physician: Nika Royal M.D. Primary Care Physician: Luca Echavarria M.D. MEDICAL IMAGING REPORT This report is preliminary unless electronic signature is present EXAM Portable abdomen, 12/04/2016. HISTORY Dobbhoff tube placement. TECHNIQUE AP portable radiograph of the left upper abdomen. FINDINGS Dobbhoff tube is partially coiled in the mid and upper stomach. The stomach is nondistended. Dictated by... Winston Carolina M.D. THIS IS AN ELECTRONICALLY VERIFIED REPORT Winston Carolina M.D. at 12/05/2016 12:51 PM POLY/valarie TD: 12/05/2016 00:36 JOB #: [id number] MEDICAL IMAGING REPORT Page 1 of 1 COPY
--- NOTE | ~2016-12-03 | CR72 ---
[facility] A Service of [facility] RADIOLOGY TEXT RESULTS PATIENT: LEESA MCKEON LOCATION: [facility] 331- : 37 UNIT #: [id number] AGE: [address]: Nika Royal MD SEX: M ORDER DR: [id number] [facility] [address] [facility]. [place], [place] [address] [id number] I MR#: [id number] Acc #: [id number] NAME: LEESA MCKEON. : 1935 SEX: M STUDY DATE/TIME: 12/05/2016 15:26 UNIT: [address] ROOM: [facility] STUDY DESCRIPTION: CR Chest Single View Portable Attending Physician: Nika Royal M.D. Ordering Physician: Nika Royal M.D. Primary Care Physician: Luca Echavarria M.D. MEDICAL IMAGING REPORT This report is preliminary unless electronic signature is present EXAM Chest x-ray single-view portable HISTORY Tube placement. COMMENT Limited single view which includes left lower chest and upper abdomen is submitted for review. There is a feeding tube which appears to be coiled within the gastric cardia. Consider advancement by about 10 cm with a followup film for more distal positioning. When followup film is obtained, the field of view should be opened. IMPRESSION Limited film shows feeding tube coiled at the gastric cardia. Consider advancement by about 10 cm with a followup film for better positioning. When the followup film is obtained, the field of view should be larger. STAT * RESULT Dictated by... Patricia Riggs M.D. THIS IS AN ELECTRONICALLY VERIFIED REPORT Patricia Riggs M.D. at 12/07/2016 8:37 AM Kitty TD: 12/05/2016 16:13 JOB #: [id number] [facility] A Service of [facility] RADIOLOGY TEXT RESULTS PATIENT: LEESA MCKEON LOCATION: [facility] 331-01 : 37 UNIT #: [id number] AGE: [address]: Nika Royal MD SEX: M ORDER DR: MEDICAL IMAGING REPORT Page 1 of 1 COPY
--- NOTE | ~2016-12-03 | OR ---
Unit #: [id number] #: [id number] Patient: LEESA MCKEON [id number] [address] [place], [place] [address] [id number] I MR#: [id number] NAME: LEESA MCKEON. ROOM: 331 Date of Procedure: 12/09/2016 Admission Date: 12/03/2016 Surgeon: Jarvis Madera M.D. : 1935 Attending Physician: Mery Chacon M.D. Primary Care Physician: Luca Echavarria M.D. OPERATIVE REPORT PROCEDURE PERFORMED Esophagogastroduodenoscopy with biopsies. INDICATIONS A 81-year-old gentleman with anemia and cirrhosis, undergoing evaluation looking for varices. MEDICATIONS Monitored anesthesia. POSTOPERATIVE FINDINGS 1. No esophageal gastric varices. 2. Diffuse guqplvmw-mg-nblbzc gastritis and duodenitis. Biopsies taken looking for Helicobacter pylori. PLAN 1. Start on PPI therapy. Treatment of Helicobacter pylori if positive. 2. Avoid NSAIDs. DESCRIPTION OF PROCEDURE The patient was explained of the procedure, risks, and benefits along with risks and benefits of anesthesia. He was brought to the endoscopy room. Propofol anesthesia was given. Bite block was placed. The scope was passed down the mouth into esophagus, stomach, duodenum, and distal duodenum. Findings as described. Biopsies taken. Gently, I pulled the scope out of the patient's mouth. He tolerated it well. Dictated by... Karina Aguirre/yuli TD: 12/10/2016 00:02 JOB #: [id number] Unit #: [id number] #: [id number] Patient: LEESA MCKEON OPERATIVE REPORT Page 1 of 1 X Jarvis Madera MD PROCEDURE OPERATIVE NOTE
--- NOTE | ~2016-12-03 | XA60 ---
[facility] A Service of [facility] & [facility] RADIOLOGY TEXT RESULTS PATIENT: LEESA MCKEON LOCATION: [facility] 331-01 : 37 UNIT #: [id number] AGE: [address]: Mery Chacon MD SEX: M ORDER DR: [id number] [place] [id number] [facility]. [place], [place] [address] [id number] I MR#: [id number] Acc #: [id number] NAME: LEESA MCKEON. : 1935 SEX: M STUDY DATE/TIME: 12/07/2016 8:01 UNIT: [address] ROOM: [facility] STUDY DESCRIPTION: XA BX Perc Liver Attending Physician: Nika Royal M.D. Ordering Physician: Nika Royal M.D. Primary Care Physician: Luca Echavarria M.D. MEDICAL IMAGING REPORT This report is preliminary unless electronic signature is present PROCEDURE Ultrasound-guided liver biopsy INDICATIONS 81-year-old male with history of cirrhosis. Medications administered were 2 mg of Versed IV and 50 mcg of fentanyl IV. Approximally 30 minutes of sedation time was monitored by appropriately credentialed radiology nursing staff with 10 minutes of direct face to face supervision performed by Dr. Canela. The risks, benefits and alternatives to the procedure were discussed with the patient, informed consent was obtained. In the procedure room a time was performed confirming correct patient and procedure. All elements maximum sterile-barrier technique utilized according guidelines appropriate for the procedure. Technique / TECHNIQUE/FINDINGS Ultrasound of the upper quadrant was performed. The overlying skin was prepped and draped in the usual sterile fashion. 1% lidocaine utilized to anesthetize the skin and underlying subcutaneous tissues. Next, using full standard sterile barrier technique including sterile caps, gowns, gloves, masks, drapes, 2% Chlorhexidine for cutaneous antisepsis, real-time sterile ultrasound guidance utilized. A sterile probe cover in sterile gel and a single core biopsy of the right lobe of liver was obtained with an 18-gauge needle and sent to pathology. The needle was removed and a sterile dressing was applied. No immediate complications. IMPRESSION Technically successful ultrasound-guided generic liver biopsy. Dictated by... Oneil Canela M.D. [facility] A Service of [facility] RADIOLOGY TEXT RESULTS PATIENT: LEESA MCKEON LOCATION: [facility] 331-01 : 37 UNIT #: [id number] AGE: [address]: Mery Chacon MD SEX: M ORDER DR: THIS IS AN ELECTRONICALLY VERIFIED REPORT Oneil Canela M.D. at 12/09/2016 12:25 PM DEVORA/nancy TD: 12/08/2016 09:14 JOB #: [id number] MEDICAL IMAGING REPORT Page 1 of 1 COPY
[~2016-12-03 11:18] MED LIST changes: +LISINOPRIL PO
[2016-12-03 12:41] LABS: BASOPHIL% 0.3 % (0-2.5); EOSINOPHIL# 0.3 X10e3 (0-0.7); EOSINOPHIL% 4.2 % (0.0-7.0); HEMATOCRIT 32.3 % (38.0-50.0); LYMPHOCYTE% 27.8 % (17.0-45.0); MEAN CELL VOLUME 99.3 FL (83-96); MEAN CORPUSCULAR HEMOGLOBIN 33.7 PG (28-34); MEAN CORPUSCULAR HGB CONC 33.9 g/dL (30-36); MEAN PLATELET VOLUME 7.9 FL (6.5-11.5); MONOCYTE# 0.9 X10e3 (0-1.0); NEUTROPHIL# 3.9 X10e3 (1.5-7.1); NEUTROPHIL% 54.7 % (40-75); PLATELET COUNT 125 X10e3 (140-420); RED BLOOD COUNT 3.25 X10e (3.90-5.60); RED CELL DISTRIBUTION WIDTH 13.3 % (11.0-15.5); WHITE BLOOD COUNT 7.2 X10e3 (4.0-10.5)
[2016-12-03 12:43] LABS: DIFF IND NO
[2016-12-03 12:50] LABS: POC - CKMB 2.8 ng/mL (0.0-7.9); POC - TROPONIN <0.05 ng/mL (<=0.05)
[2016-12-03 12:51] LABS: INR 1.3; PARTIAL THROMBOPLASTIN TIME 26.9 SECONDS (23.5-31.3); PROTHROMBIN TIME (PATIENT) 14.1 SECONDS (10.0-11.7)
[2016-12-03 13:07] LABS: ALBUMIN SERUM 3.9 g/dL (3.5-5.0); BILIRUBIN, DIRECT 0.5 mg/dL (0.0-0.2); BILIRUBIN,TOTAL 2.5 mg/dL (0.2-2.0); BUN/CREATININE RATIO 23.47; CALCIUM SERUM 9.3 mg/dL (8.4-10.2); CREATININE SERUM 2.3 mg/dL (0.6-1.4); POTASSIUM 4.1 mmol/L (3.5-5.1); PROTEIN TOTAL SERUM 6.8 g/dL (6.0-8.3)
[2016-12-03] MEDS ORDERED: PANTOPRAZOLE SO40 MG PO (13:39)
[2016-12-03] MEDS ORDERED: ALDACTONE PO (13:39)
[2016-12-03 13:50] LABS: URINE SOURCE CLEAN CATCH
[2016-12-03 13:57] LABS: URINE APPEARANCE CLEAR; URINE BILIRUBIN NEG (NEG); URINE BLOOD NEG (NEG); URINE COLOR YELLOW; URINE GLUCOSE NEG (NEG); URINE KETONE TRACE (NEG); URINE LEUKOCYTE ESTERASE NEG (NEG); URINE NITRATE NEG (NEG); URINE PROTEIN NEG (NEG); URINE SPECIFIC GRAVITY 1.016 (1.003-1.035)
[2016-12-03 14:02] LABS: CULTURE INDICATED? NO
[2016-12-03 16:38] LABS: FOLATE (FOLIC ACID) 19.8 ng/mL (>5.8)
[2016-12-03 17:35] LABS: %MB 0.5 % (0.0-4.0); MB 4.9 ng/ml
[2016-12-04 07:01] LABS: ALBUMIN SERUM 3.6 g/dL (3.5-5.0); BILIRUBIN,TOTAL 2.5 mg/dL (0.2-2.0); BUN/CREATININE RATIO 23.04; CREATININE SERUM 2.3 mg/dL (0.6-1.4); POTASSIUM 3.6 mmol/L (3.5-5.1); PROTEIN TOTAL SERUM 6.4 g/dL (6.0-8.3)
[2016-12-04 09:41] LABS: HEMATOCRIT 31.3 % (38.0-50.0); HEMOGLOBIN 10.6 gm/dL (13.0-16.0); MEAN CELL VOLUME 99.1 FL (83-96); MEAN CORPUSCULAR HEMOGLOBIN 33.6 PG (28-34); MEAN PLATELET VOLUME 7.7 FL (6.5-11.5); RED BLOOD COUNT 3.15 X10e (3.90-5.60); RED CELL DISTRIBUTION WIDTH 13.6 % (11.0-15.5); WHITE BLOOD COUNT 6.5 X10e3 (4.0-10.5)
[2016-12-04 10:45] LABS: %MB 0.3 % (0.0-4.0); MB 6.1 ng/ml
[2016-12-04 11:15] LABS: ARTERIAL BLD GAS O2 SATURATION 97.6 % (90.0-100.0); ARTERIAL BLOOD GAS CARBOXY HB 0.7 %sat (0.0-9.0); ARTERIAL BLOOD GAS HCO3 22.8 mmol/L; ARTERIAL BLOOD GAS MET HB 0.6 %sat (0.0-2.0); ARTERIAL BLOOD GAS PCO2 27.1 mmHg (35.0-45.0); ARTERIAL BLOOD GAS pH 7.534 (7.350-7.450)
[2016-12-04 11:16] LABS: ARTERIAL BLOOD GAS ART SITE LEFT RADIAL; ARTERIAL BLOOD GAS DELIVERY NASAL CANNULA; ARTERIAL DRAW? YES
[2016-12-05 06:36] LABS: HEMATOCRIT 30.3 % (38.0-50.0); HEMOGLOBIN 10.3 gm/dL (13.0-16.0); MEAN CELL VOLUME 99.6 FL (83-96); MEAN CORPUSCULAR HGB CONC 34.1 g/dL (30-36); RED BLOOD COUNT 3.04 X10e (3.90-5.60); RED CELL DISTRIBUTION WIDTH 13.9 % (11.0-15.5); WHITE BLOOD COUNT 7.4 X10e3 (4.0-10.5)
[2016-12-05 06:44] LABS: ALBUMIN SERUM 3.5 g/dL (3.5-5.0); BILIRUBIN,TOTAL 2.3 mg/dL (0.2-2.0); BUN/CREATININE RATIO 24.5; CALCIUM SERUM 9.1 mg/dL (8.4-10.2); GLOM FILT RATE Estimated 30.8 mL/min (>60); POTASSIUM 3.7 mmol/L (3.5-5.1); PROTEIN TOTAL SERUM 6.3 g/dL (6.0-8.3)
[2016-12-06 05:30] LABS: HEMOGLOBIN 10.3 gm/dL (13.0-16.0); MEAN CELL VOLUME 100.7 FL (83-96); MEAN CORPUSCULAR HEMOGLOBIN 33.6 PG (28-34); MEAN CORPUSCULAR HGB CONC 33.3 g/dL (30-36); MEAN PLATELET VOLUME 8.2 FL (6.5-11.5); RED BLOOD COUNT 3.08 X10e (3.90-5.60); RED CELL DISTRIBUTION WIDTH 13.5 % (11.0-15.5); WHITE BLOOD COUNT 7.3 X10e3 (4.0-10.5)
[2016-12-06 06:04] LABS: INR 1.3; PARTIAL THROMBOPLASTIN TIME 31.1 SECONDS (23.5-31.3); PROTHROMBIN TIME (PATIENT) 14.4 SECONDS (10.0-11.7)
[2016-12-06 06:18] LABS: ALBUMIN SERUM 3.4 g/dL (3.5-5.0); BILIRUBIN,TOTAL 2.6 mg/dL (0.2-2.0); BUN/CREATININE RATIO 25.26; CALCIUM SERUM 8.7 mg/dL (8.4-10.2); CREATININE SERUM 1.9 mg/dL (0.6-1.4); GLOM FILT RATE Estimated 32.8 mL/min (>60); PHOSPHOROUS 2.9 mg/dL (2.5-4.6); POTASSIUM 3.8 mmol/L (3.5-5.1); PROTEIN TOTAL SERUM 6.3 g/dL (6.0-8.3)
[2016-12-07 05:58] LABS: HEMATOCRIT 28.5 % (38.0-50.0); HEMOGLOBIN 9.7 gm/dL (13.0-16.0); MEAN CELL VOLUME 100.2 FL (83-96); MEAN CORPUSCULAR HGB CONC 33.9 g/dL (30-36); MEAN PLATELET VOLUME 7.7 FL (6.5-11.5); RED BLOOD COUNT 2.84 X10e (3.90-5.60); RED CELL DISTRIBUTION WIDTH 13.7 % (11.0-15.5); WHITE BLOOD COUNT 5.3 X10e3 (4.0-10.5)
[2016-12-07 06:26] LABS: INR 1.3; PARTIAL THROMBOPLASTIN TIME 31.1 SECONDS (23.5-31.3); PROTHROMBIN TIME (PATIENT) 14.3 SECONDS (10.0-11.7)
[2016-12-07 06:44] LABS: ALBUMIN SERUM 3.1 g/dL (3.5-5.0); BILIRUBIN,TOTAL 2.4 mg/dL (0.2-2.0); BUN/CREATININE RATIO 24.37; CALCIUM SERUM 8.5 mg/dL (8.4-10.2); CREATININE SERUM 1.6 mg/dL (0.6-1.4); GLOM FILT RATE Estimated 40.4 mL/min (>60); MAGNESIUM 1.9 mg/dL (1.6-3.0); PHOSPHOROUS 2.7 mg/dL (2.5-4.6); POTASSIUM 3.5 mmol/L (3.5-5.1); PROTEIN TOTAL SERUM 5.8 g/dL (6.0-8.3)
[2016-12-08 00:15] LABS: HA AB IGM (HEPPAN) Nonreactive (()); HB CORE AB IGM (HEPPAN) Nonreactive (Nonreactive); HB S AG (HEPPAN) Nonreactive (Nonreactive); HEP C AB (HEPPAN) Nonreactive (Nonreactive); HEP C AB SIGNAL TO CUTOFF 0.03 ratio (<1.00)
[2016-12-08 06:25] LABS: HEMATOCRIT 28.6 % (38.0-50.0); HEMOGLOBIN 9.8 gm/dL (13.0-16.0); MEAN CELL VOLUME 99.3 FL (83-96); MEAN CORPUSCULAR HGB CONC 34.2 g/dL (30-36); MEAN PLATELET VOLUME 7.7 FL (6.5-11.5); RED BLOOD COUNT 2.88 X10e (3.90-5.60); RED CELL DISTRIBUTION WIDTH 13.6 % (11.0-15.5); WHITE BLOOD COUNT 5.6 X10e3 (4.0-10.5)
[2016-12-08 07:12] LABS: BILIRUBIN,TOTAL 2.2 mg/dL (0.2-2.0); BUN/CREATININE RATIO 25.71; CALCIUM SERUM 8.6 mg/dL (8.4-10.2); CREATININE SERUM 1.4 mg/dL (0.6-1.4); GLOM FILT RATE Estimated 47.5 mL/min (>60); POTASSIUM 3.5 mmol/L (3.5-5.1); PROTEIN TOTAL SERUM 5.7 g/dL (6.0-8.3)
[2016-12-09 06:02] LABS: HEMATOCRIT 29.7 % (38.0-50.0); MEAN CELL VOLUME 99.9 FL (83-96); MEAN CORPUSCULAR HEMOGLOBIN 33.7 PG (28-34); MEAN CORPUSCULAR HGB CONC 33.7 g/dL (30-36); MEAN PLATELET VOLUME 8.2 FL (6.5-11.5); RED BLOOD COUNT 2.97 X10e (3.90-5.60); RED CELL DISTRIBUTION WIDTH 13.2 % (11.0-15.5); WHITE BLOOD COUNT 5.3 X10e3 (4.0-10.5)
[2016-12-09 06:37] LABS: ALBUMIN SERUM 3.1 g/dL (3.5-5.0); BILIRUBIN,TOTAL 2.4 mg/dL (0.2-2.0); BUN/CREATININE RATIO 23.57; CALCIUM SERUM 8.5 mg/dL (8.4-10.2); CREATININE SERUM 1.4 mg/dL (0.6-1.4); GLOM FILT RATE Estimated 47.5 mL/min (>60); POTASSIUM 3.6 mmol/L (3.5-5.1)
[2016-12-09 21:55] LABS: ANA SCREEN Negative (Negative)
[2016-12-10 07:11] LABS: BUN/CREATININE RATIO 23.57; CALCIUM SERUM 8.9 mg/dL (8.4-10.2); CREATININE SERUM 1.4 mg/dL (0.6-1.4); GLOM FILT RATE Estimated 47.5 mL/min (>60); POTASSIUM 4.3 mmol/L (3.5-5.1)
== END 2016-12-10 18:39 | DRG 432 ==
LOC: CED 11:18 → CEDOF 15:20 → C3A PCU 15:20 → CED 15:42 → CEDOF 15:42 → C3A PCU 19:41 → CEDOF 19:41 → C3A PCU 12-04 06:40
PROVIDERS: Emergency Medicine; Family Medicine; Internal Medicine; Internal Medicine Nephrology; Nurse Practitioner; Specialist
PROC: 0DH67UZ Insertion of Feeding Device into Stomach, Via Natural or Artificial Opening (ICD-10-PCS; 2016-12-05)
PROC: 0FB13ZX Excision of Right Lobe Liver, Percutaneous Approach, Diagnostic (ICD-10-PCS; 2016-12-07)
PROC: 0DB68ZX Excision of Stomach, Via Natural or Artificial Opening Endoscopic, Diagnostic (ICD-10-PCS; principal; 2016-12-09 12:32)
DX: K74.60 Unspecified cirrhosis of liver (principal); G92 Toxic encephalopathy; N17.9 Acute kidney failure, unspecified; I13.0 Hypertensive heart and chronic kidney disease with heart failure and stage 1 through stage 4 chronic kidney disease, or unspecified chronic kidney disease; I50.32 Chronic diastolic (congestive) heart failure; E11.22 Type 2 diabetes mellitus with diabetic chronic kidney disease; N18.3 Chronic kidney disease, stage 3 (moderate); K72.90 Hepatic failure, unspecified without coma; E72.20 Disorder of urea cycle metabolism, unspecified; Z79.4 Long term (current) use of insulin; E66.01 Morbid (severe) obesity due to excess calories; K29.70 Gastritis, unspecified, without bleeding; K29.80 Duodenitis without bleeding; Z83.3 Family history of diabetes mellitus; S90.911A Unspecified superficial injury of right ankle, initial encounter; W19.XXXA Unspecified fall, initial encounter; Y92.129 Unspecified place in nursing home as the place of occurrence of the external cause; K75.81 Nonalcoholic steatohepatitis (NASH); D64.9 Anemia, unspecified; Z88.8 Allergy status to other drugs, medicaments and biological substances
CPT/HCPCS: 36415; 36600; 51701; 70450; 70551; 71010; 72125; 74000; 74176; 76705; 76942; 78227; 80048; 80053; 80074; 80076; 81003; 82105; 82140; 82150; 82550; 82553; 82607; 82746; 82803; 82947; 83605; 83690; 83735; 84100; 84443; 84484; 85025; 85027; 85610; 85730; 86038; 86039; 87040; 88305; 88307; 88312; 88313; 92526; 92610; 93005; 97163; 97166; 97530; 97535; 99285; A9537; G8978-GP; G8979-GP; G8987-GO; G8988-GO; G8996-GN; G8997-GN; G8998-GN; J1815; J2060; J2250; J3010